=== PATIENT | male | born 1960 | race Caucasian/White ===

== ENCOUNTER 2019-08-15 14:18 | Emergency (ER) | payer BC, SELFPAY ==
--- NOTE | 2019-08-15 14:24 | XR_ITS ---
WS: [id number] XR chest 1V portable [id number] REASON FOR EXAM: sob FINDINGS: Cardiomegaly is again unchanged since earlier exam exposed June 14, 2016. The lung florentino are well aerated. No pulmonary edema, pneumonia, pleural effusion, no mass effect. The hilum and apices are normal. No evidence suspicious of osteoid lesions are seen. XR/XR chest 1V portable [id number] IMPRESSION: Cardiomegaly
--- NOTE | 2019-08-15 14:25 | ECG_ITS ---
Measurements Intervals [place] Rate: 58 P: -16 SD: 205 QRS: -8 QRSD: 110 T: 10 QT: 459 QTc: 454 SINUS BRADYCARDIA WITH FREQUENT VENTRICULAR PREMATURE COMPLEXES ABNORMAL RHYTHM ECG Compared to ECG 06/13/2016 05:31:50 Ventricular premature complex(es) now present Sinus rhythm no longer present First degree AV block no longer present Incomplete right bundle-branch block no longer present Electronically Signed On 08-15-2019 19:07:21 EQUIPMENT MAINT TECH by Negin Ibrahim M.D. [id number]
[2019-08-15 15:00] VITALS: BP 169/85; PULSE 64; RESP 18; TEMP 36.5; O2SAT 97; BMI 50.2
[2019-08-15 15:37] LABS: Basophils % 0.3 %; Eosinophils # 0.4 10^3/uL (0.0-0.8); Eosinophils % 4.1 %; Hematocrit 33.4 % (42.0-52.0); Hemoglobin 10.6 g/dL (11.7-16.6); Lymphocytes # 2.4 10^3/uL (0.8-4.8); Lymphocytes % 27.4 %; Mean Corpuscular HGB Conc 31.7 g/dL (30.0-36.0); Mean Corpuscular Hemoglobin 28.3 pg (28.0-34.0); Mean Corpuscular Volume 89.3 fL (80-94); Mean Platelet Volume 9.2 fL (7.4-10.4); Monocytes # 0.7 10^3/uL (0.2-0.9); Neutrophils # 5.3 10^3/uL (1.8-7.7); Neutrophils % 59.9 %; Nucleated Red Blood Cells % 0 %; Platelet Count 324 10^3/cmm (130-400); Red Blood Count 3.74 10^6/uL (4.1-5.3); Red Cell Distribution Width 14.5 % (12.1-15.1); White Blood Count 8.9 10^3/uL (4.0-10.0)
[2019-08-15 16:02] LABS: Troponin(5th) Baseline 15 ng/mL (0-15)
[2019-08-15 16:07] LABS: Alanine Aminotransferase 28 U/L (0-41); Albumin Level 3.9 g/dL (3.5-5.2); Alkaline Phosphatase 99 IU/L (40-130); Anion Gap 15.7 (5-19); Aspartate Amino Transferase 29 U/L (0-40); Blood Urea Nitrogen 30 mg/dL (8-23); Calcium 9.7 mg/dL (8.5-10.5); Carbon Dioxide 24 mmol/L (22-29); Chloride 103 mmol/L (98-107); Globulin 3.3 g/dL (1.3-4.6); Glomerular Filtration Rate 44.3 mL/min (90-130); Glucose 95 mg/dL (65-115); NT Pro B Type Natriuretic Pept 1393 pg/mL (0-125); Potassium 3.7 mmol/L (3.5-5.1); Sodium 139 mmol/L (136-145); Total Bilirubin 0.2 mg/dL (0.15-1.2); Total Protein 7.2 g/dL (6.6-8.7)
--- NOTE | 2019-08-15 16:21 | ED_ITS ---
Documented by User: VI Saleh 08/19/19 17:07 HPI - SOB/Dyspnea General: Chief Complaint: Shortness of Breath/Dyspnea Stated Complaint: sob, fatigue, Hx of PE Time Seen by Provider: 08/15/19 16:08 Source: patient and family Mode of arrival: ambulatory Limitations: no limitations History of Present Illness: HPI Narrative: Patient is a 58-year-old male who presents to ED today with complaints of shortness of breath with any form of exertion over the past month. He states when he walks he is getting fatigue to his bilateral lower extremities. Patient states he does not have any symptoms at rest. He states in 2016 he was diagnosed with PEs and placed on anticoagulation for 6 months. He complains of chronic bilateral lower extremity swelling. Patient denies chest pains. Patient does see PCP Dr. Bowers and he is on 20 mg of Lasix daily as well as bisoprolol/HCTZ for the swelling. MD elicited complaint: shortness of breath Pertinent past history: PE Onset (ago): week(s) Timing: intermittent (with exercise ) Exacerbating factors: lying flat and exertion Relieving factors: rest Associated symptoms: Reports orthopnea; Deny abdominal pain, chest congestion, chest pain, fever(s), hemoptysis, lightheadedness, nausea, palpitations, syncope or vomiting Related Data: Home oxygen amount: none Review of Systems Const: Reports: fatigue; Denies: fever, chills, body aches, change in appetite, change in weight, malaise or night sweats Eyes: Denies: change in vision or blurry vision Card: Reports: swelling of feet/ankles (chronic), shortness of breath on exertion and shortness of breath when lying down; Denies: chest pain, palpitations, irregular heart rhythm, edema, lightheadedness, syncope or pre-syncope Resp: Reports: shortness of breath; Denies: productive cough, non-productive cough, pain on inspiration, coughing up blood or chest congestion GI: Denies: abdominal pain, nausea or vomiting : Denies: flank pain Musc: Reports: extremity swelling (chronic bilateral LE); Denies: neck pain or back pain Skin/Breast: Denies: rash Neuro: Denies: headache, numbness in extremities, weakness in extremities or changes in sensation [facility] ED PFSH: Medical History (Updated 08/15/19 @ 18:19 by AMY Gilliam) Hypertension Porokeratosis PVD (peripheral vascular disease) Social History (Updated 07/18/19 @ 10:25 by Charlette Beltre LPN) Smoking and tobacco status: never smoked Alcohol intake: never Physical Exam Const: COMMON NORMALS: no apparent distress, oriented x3, no limitations and alert NUTRITIONAL APPEARANCE: obese HENMT: COMMON NORMALS: normocephalic and head/scalp atraumatic HEAD & SCALP: normocephalic and atraumatic Chest: COMMONS NORMALS: inspection of chest normal and palpation of chest normal Resp: COMMON NORMALS: normal respiratory effort and clear to auscultation bilaterally AUSCULTATION: clear to auscultation bilaterally Cardio: COMMON NORMALS: regular rate and regular rhythm RATE: regular rate RHYTHM: regular rhythm Extremity: OTHER: bilateral LE pitting edema/lymphedema; chronic vascular stasis changes noted Neuro: COMMON NORMALS: oriented x3 SENSORIUM/ORIENTATION: Yes alert Course Vital Signs: Vital signs: Vital Signs Temperature 97.7 F 08/15/19 15:00 Pulse Rate 60 08/15/19 19:07 Respiratory Rate 18 08/15/19 19:07 Blood Pressure 191/91 08/15/19 19:07 Pulse Oximetry 98 08/15/19 19:07 MDM - SOB/Dyspnea Lab Data: Labs: Lab Results 08/15/19 08/15/19 08/15/19 Range/Units 15:23 15:23 15:23 WBC 8.9 (4.0-10.0) 10^3/ uL RBC 3.74 L (4.1-5.3) 10^6/u L Hgb 10.6 L (11.7-16.6) g/dL Hct 33.4 L (42.0-52.0) % MCV 89.3 (80-94) fL MCH 28.3 (28.0-34.0) pg MCHC 31.7 (30.0-36.0) g/dL RDW 14.5 (12.1-15.1) % Plt Count 324 (130-400) 10^3/c mm MPV 9.2 (7.4-10.4) fL Neut % (Auto) 59.9 % Lymph % (Auto) 27.4 % [place] % (Auto) 8.0 % Eos % (Auto) 4.1 % Baso % (Auto) 0.3 % Neut # (Auto) 5.3 (1.8-7.7) 10^3/u L Lymph # (Auto) 2.4 (0.8-4.8) 10^3/u L [place] # (Auto) 0.7 (0.2-0.9) 10^3/u L Eos # (Auto) 0.4 (0.0-0.8) 10^3/u L Baso # (Auto) 0.0 (0.0-0.1) 10^3/u L Nucleated RBC % (a uto) 0 % Nucleated RBCs # 0.0 /100WBC Sodium 139 (136-145) mmol/L Potassium 3.7 (3.5-5.1) mmol/L Chloride 103 (98-107) mmol/L Carbon Dioxide 24 (22-29) mmol/L Anion Gap 15.7 (5-19) BUN 30 H (8-23) mg/dL Creatinine 1.6 H (0.7-1.2) mg/dL GFR Calculation 44.3 L (90-130) mL/min Glucose 95 (65-115) mg/dL Calcium 9.7 (8.5-10.5) mg/dL Total Bilirubin 0.2 (0.15-1.2) mg/dL AST 29 (0-40) U/L ALT 28 (0-41) U/L Alkaline Phosphata se 99 (40-130) IU/L Troponin T Baselin e 15 (0-15) ng/mL Troponin T 120 Min [place] (0-15) ng/mL Delta Troponin T (0-10) ABS# NT-Pro-B Natriuret Pep 1393 H (0-125) pg/mL Total Protein 7.2 (6.6-8.7) g/dL Albumin 3.9 (3.5-5.2) g/dL Globulin 3.3 (1.3-4.6) g/dL 08/15/19 Range/Units 17:28 WBC (4.0-10.0) 10^3/ uL RBC (4.1-5.3) 10^6/u L Hgb (11.7-16.6) g/dL Hct (42.0-52.0) % MCV (80-94) fL MCH (28.0-34.0) pg MCHC (30.0-36.0) g/dL RDW (12.1-15.1) % Plt Count (130-400) 10^3/c mm MPV (7.4-10.4) fL Neut % (Auto) % Lymph % (Auto) % [place] % (Auto) % Eos % (Auto) % Baso % (Auto) % Neut # (Auto) (1.8-7.7) 10^3/u L Lymph # (Auto) (0.8-4.8) 10^3/u L [place] # (Auto) (0.2-0.9) 10^3/u L Eos # (Auto) (0.0-0.8) 10^3/u L Baso # (Auto) (0.0-0.1) 10^3/u L Nucleated RBC % (a uto) % Nucleated RBCs # /100WBC Sodium (136-145) mmol/L Potassium (3.5-5.1) mmol/L Chloride (98-107) mmol/L Carbon Dioxide (22-29) mmol/L Anion Gap (5-19) BUN (8-23) mg/dL Creatinine (0.7-1.2) mg/dL GFR Calculation (90-130) mL/min Glucose (65-115) mg/dL Calcium (8.5-10.5) mg/dL Total Bilirubin (0.15-1.2) mg/dL AST (0-40) U/L ALT (0-41) U/L Alkaline Phosphata se (40-130) IU/L Troponin T Baselin e (0-15) ng/mL Troponin T 120 Min [place] 13.84 (0-15) ng/mL Delta Troponin T -1.16 L (0-10) ABS# NT-Pro-B Natriuret Pep (0-125) pg/mL Total Protein (6.6-8.7) g/dL Albumin (3.5-5.2) g/dL Globulin (1.3-4.6) g/dL Discharge Plan Discharge Patient Disposition: Home, Self-Care Clinical Impression: Congestive heart failure Qualifiers: Heart failure type: unspecified Heart failure chronicity: unspecified Qualified Code(s): I50.9 - Heart failure, unspecified Condition: Stable Prescriptions: New furosemide 40 mg tablet 40 mg PO DAILY 7 Days Qty: 7 RF: 0 potassium chloride 10 mEq tablet extended release 10 meq PO DAILY Qty: 7 RF: 0 No Action amlodipine 5 mg tablet 5 mg PO DAILY RF: 0 bisoprolol-hydrochlorothiazide 10-6.25 mg tablet 1 tab PO DAILY RF: 0 cetirizine [Allergy Relief (cetirizine)] 10 mg tablet 10 mg PO DAILY RF: 0 isosorbide mononitrate 60 mg tablet extended release 24 hr 120 mg PO DAILY RF: 0 furosemide [Lasix] 20 mg tablet 20 mg PO DAILY RF: 0 losartan 100 mg tablet 100 mg PO DAILY RF: 0 metformin 500 mg tablet 500 mg PO BID RF: 0 montelukast [Singulair] 10 mg tablet 10 mg PO DAILY RF: 0 Discharge Orders: Discharge Order (Routine); Ordered 08/15/19 Ordered By: Madan Kam Referrals: Tye Bowers MD [Primary Care Provider] - Discharge Diet: Usual diet Discharge Activity: Increase activity as tolerated Patient Instructions: Heart Failure (ED) Activity Restrictions/Additional Instructions: Activity as tolerated Healthy diet Medications as directed Follow-up with primary care in one week Case management will contact you with referral to Cardiology Return to ER for worsening symptoms or new concerns Stand Alone Forms: Work/School Release Discharge Date/Time: 08/15/19 19:07 Coding Level of Care Code ED Care Team Coordinator Scheduler for Chg Fwd Exam Detailed Documented by User: AMY Gilliam 08/15/19 19:05 HPI - SOB/Dyspnea General: Chief Complaint: Shortness of Breath/Dyspnea Stated Complaint: sob, fatigue, Hx of PE Time Seen by Provider: 08/15/19 16:08 PFSH ED PFSH: Medical History (Updated 08/15/19 @ 18:19 by AMY Gilliam) Hypertension Porokeratosis PVD (peripheral vascular disease) Social History (Updated 07/18/19 @ 10:25 by Charlette Beltre LPN) Smoking and tobacco status: never smoked Alcohol intake: never Course ED course: 0, received patient from Flower Saenz PA-C, patient is awaiting CT scan and report. ww Vital Signs: Vital signs: Vital Signs Temperature 97.7 F 08/15/19 15:00 Pulse Rate 60 08/15/19 19:07 Respiratory Rate 18 08/15/19 19:07 Blood Pressure 191/91 08/15/19 19:07 Pulse Oximetry 98 08/15/19 19:07 MDM - SOB/Dyspnea MDM Narrative: Medical decision making narrative: Patient came in today for persistent shortness of breath over the last month. Patient has a history of pulmonary embolism, diabetes, and hypertension. Patient was worried that he may have a pulmonary embolism due to the persistence of shortness of breath. Patient is a obese male and is on multiple medications suggestive of a congestive heart failure history. Patient appears well. Patient appears in no pain. Differential diagnosis includes pulmonary embolism, ACS, CHF, pneumonia, poor cardiac conditioning. X-rays noted cardiomegaly. Laboratory values noted a hemoglobin of 10 and 33, creatinine was 1.6, potassium was 3.7 and sodium was 139. CT scan of the chest noted no pulmonary embolism. EKG noted occasional PVCs and a first-degree AV block. Troponin level was normal. BNP was elevated at 1300. Reviewed exam with patient recommended treatment for congestive heart failure. Patient was recommended to follow-up with cardiology for further management. Patient was given 1 dose of 40 mg furosemide in the ER IV with good diuresis. Patient was also started on 40 mg Lasix daily with potassium 10 mEq daily. Patient reported understanding of care plan and need for follow-up. Lab Data: Labs: Lab Results 08/15/19 08/15/19 08/15/19 Range/Units 15:23 15:23 15:23 WBC 8.9 (4.0-10.0) 10^3/ uL RBC 3.74 L (4.1-5.3) 10^6/u L Hgb 10.6 L (11.7-16.6) g/dL Hct 33.4 L (42.0-52.0) % MCV 89.3 (80-94) fL MCH 28.3 (28.0-34.0) pg MCHC 31.7 (30.0-36.0) g/dL RDW 14.5 (12.1-15.1) % Plt Count 324 (130-400) 10^3/c mm MPV 9.2 (7.4-10.4) fL Neut % (Auto) 59.9 % Lymph % (Auto) 27.4 % [place] % (Auto) 8.0 % Eos % (Auto) 4.1 % Baso % (Auto) 0.3 % Neut # (Auto) 5.3 (1.8-7.7) 10^3/u L Lymph # (Auto) 2.4 (0.8-4.8) 10^3/u L [place] # (Auto) 0.7 (0.2-0.9) 10^3/u L Eos # (Auto) 0.4 (0.0-0.8) 10^3/u L Baso # (Auto) 0.0 (0.0-0.1) 10^3/u L Nucleated RBC % (a uto) 0 % Nucleated RBCs # 0.0 /100WBC Sodium 139 (136-145) mmol/L Potassium 3.7 (3.5-5.1) mmol/L Chloride 103 (98-107) mmol/L Carbon Dioxide 24 (22-29) mmol/L Anion Gap 15.7 (5-19) BUN 30 H (8-23) mg/dL Creatinine 1.6 H (0.7-1.2) mg/dL GFR Calculation 44.3 L (90-130) mL/min Glucose 95 (65-115) mg/dL Calcium 9.7 (8.5-10.5) mg/dL Total Bilirubin 0.2 (0.15-1.2) mg/dL AST 29 (0-40) U/L ALT 28 (0-41) U/L Alkaline Phosphata se 99 (40-130) IU/L Troponin T Baselin e 15 (0-15) ng/mL Troponin T 120 Min [place] (0-15) ng/mL Delta Troponin T (0-10) ABS# NT-Pro-B Natriuret Pep 1393 H (0-125) pg/mL Total Protein 7.2 (6.6-8.7) g/dL Albumin 3.9 (3.5-5.2) g/dL Globulin 3.3 (1.3-4.6) g/dL 08/15/19 Range/Units 17:28 WBC (4.0-10.0) 10^3/ uL RBC (4.1-5.3) 10^6/u L Hgb (11.7-16.6) g/dL Hct (42.0-52.0) % MCV (80-94) fL MCH (28.0-34.0) pg MCHC (30.0-36.0) g/dL RDW (12.1-15.1) % Plt Count (130-400) 10^3/c mm MPV (7.4-10.4) fL Neut % (Auto) % Lymph % (Auto) % [place] % (Auto) % Eos % (Auto) % Baso % (Auto) % Neut # (Auto) (1.8-7.7) 10^3/u L Lymph # (Auto) (0.8-4.8) 10^3/u L [place] # (Auto) (0.2-0.9) 10^3/u L Eos # (Auto) (0.0-0.8) 10^3/u L Baso # (Auto) (0.0-0.1) 10^3/u L Nucleated RBC % (a uto) % Nucleated RBCs # /100WBC Sodium (136-145) mmol/L Potassium (3.5-5.1) mmol/L Chloride (98-107) mmol/L Carbon Dioxide (22-29) mmol/L Anion Gap (5-19) BUN (8-23) mg/dL Creatinine (0.7-1.2) mg/dL GFR Calculation (90-130) mL/min Glucose (65-115) mg/dL Calcium (8.5-10.5) mg/dL Total Bilirubin (0.15-1.2) mg/dL AST (0-40) U/L ALT (0-41) U/L Alkaline Phosphata se (40-130) IU/L Troponin T Baselin e (0-15) ng/mL Troponin T 120 Min [place] 13.84 (0-15) ng/mL Delta Troponin T -1.16 L (0-10) ABS# NT-Pro-B Natriuret Pep (0-125) pg/mL Total Protein (6.6-8.7) g/dL Albumin (3.5-5.2) g/dL Globulin (1.3-4.6) g/dL Discharge Plan Discharge Patient Disposition: Home, Self-Care Clinical Impression: Congestive heart failure Qualifiers: Heart failure type: unspecified Heart failure chronicity: unspecified Qualified Code(s): I50.9 - Heart failure, unspecified Condition: Stable Prescriptions: New furosemide 40 mg tablet 40 mg PO DAILY 7 Days Qty: 7 RF: 0 potassium chloride 10 mEq tablet extended release 10 meq PO DAILY Qty: 7 RF: 0 No Action amlodipine 5 mg tablet 5 mg PO DAILY RF: 0 bisoprolol-hydrochlorothiazide 10-6.25 mg tablet 1 tab PO DAILY RF: 0 cetirizine [Allergy Relief (cetirizine)] 10 mg tablet 10 mg PO DAILY RF: 0 isosorbide mononitrate 60 mg tablet extended release 24 hr 120 mg PO DAILY RF: 0 furosemide [Lasix] 20 mg tablet 20 mg PO DAILY RF: 0 losartan 100 mg tablet 100 mg PO DAILY RF: 0 metformin 500 mg tablet 500 mg PO BID RF: 0 montelukast [Singulair] 10 mg tablet 10 mg PO DAILY RF: 0 Discharge Orders: Discharge Order (Routine); Ordered 08/15/19 Ordered By: Madan Kam Referrals: Tye Bowers MD [Primary Care Provider] - Discharge Diet: Usual diet Discharge Activity: Increase activity as tolerated Patient Instructions: Heart Failure (ED) Activity Restrictions/Additional Instructions: Activity as tolerated Healthy diet Medications as directed Follow-up with primary care in one week Case management will contact you with referral to Cardiology Return to ER for worsening symptoms or new concerns Stand Alone Forms: Work/School Release Discharge Date/Time: 08/15/19 19:07 Coding Level of Care Code ED Care Team Coordinator Scheduler for Andrés Fwd Exam Detailed
--- NOTE | 2019-08-15 16:25 | CTR_ITS ---
PROCEDURE INFORMATION: Exam: CT Angiography Chest With Contrast Exam date and time: 08/15/2019 4:45 PM Age: 58 years old Clinical indication: Shortness of breath; Additional info: SOB; Previous pe 2016 TECHNIQUE: Imaging protocol: Computed tomographic angiography of the chest with intravenous contrast. 3D rendering: MIP and/or 3D reconstructed images were created by the technologist. Total DLP: 1002.95 mGy-cm Radiation optimization: All CT scans at this facility use at least one of these dose optimization techniques: automated exposure control; mA and/or kV adjustment per patient size (includes targeted exams where dose is matched to clinical indication); or iterative reconstruction. Contrast material: VISI; Contrast volume: 95 ml; Contrast route: AC; COMPARISON: CTA Chest-Pulmonary Emb [id number] 06/12/2016 12:50 PM FINDINGS: Pulmonary arteries: There is no pulmonary embolus. Aorta: Unremarkable. No aortic aneurysm. No aortic dissection. Lungs: Unremarkable. No consolidation. No masses. Pleural space: Unremarkable. No pneumothorax. No pleural effusion. Heart: Unremarkable. No cardiomegaly. No pericardial effusion. Mediastinum: A small hiatal hernia is present. Liver: There is mild fatty infiltration liver. Lymph nodes: Unremarkable. No enlarged lymph nodes. Bones/joints: Moderate degenerative changes are noted in the spine. No acute bony abnormality. Soft tissues: Unremarkable. CT/CT angio chest PE protcl [id number] IMPRESSION: 1. There is no pulmonary embolus. 2. No acute abnormality. Radiation Dose CTDIVOL = (mGy): DLP = 1002.95 (mGy-cm)
--- NOTE | 2019-08-15 16:25 | ECG_ITS ---
Measurements Intervals [place] Rate: 63 P: 26 AK: 243 QRS: -11 QRSD: 110 T: 7 QT: 443 QTc: 454 SINUS RHYTHM WITH FIRST DEGREE AV BLOCK WITH FREQUENT VENTRICULAR PREMATURE COMPLEXES Compared to ECG 06/13/2016 05:31:50 Ventricular premature complex(es) now present Incomplete right bundle-branch block no longer present Electronically Signed On 08-15-2019 19:12:59 ROOFING APPRENTICE by Negin Ibrahim M.D. [id number]
[2019-08-15 16:27] VITALS: BP 166/86; PULSE 61; RESP 17; O2SAT 97
[2019-08-15] MEDS: iodixanol 320 mg/mL 100mL Btl 95 ML IV (17:14)
[2019-08-15 18:00] VITALS: BP 204/107; PULSE 61; RESP 15; O2SAT 97
[2019-08-15 18:31] LABS: Troponin 5 2HR 13.84 ng/mL (0-15)
[2019-08-15 18:32] LABS: Troponin 5 2HR Delta -1.16 ABS# (0-10)
[2019-08-15] MEDS: FUROsemide 10 mg/mL SDV 4mL 40 MG IVP (18:39)
[2019-08-15 19:07] VITALS: BP 191/91; PULSE 60; RESP 18; O2SAT 98
--- NOTE | 2019-08-16 13:49 | DCPLANNER ---
Addendum entered by Anne Stanton 08/16/19 13:51: Appointment is Friday, August 23, 2019 at 10:[address] Mckenzie. Original Note: manager of tires sales had message to schedule a follow up appointment for patient with [facility]. manager of tires sales called [facility], spoke with Erna, a follow up appointment was scheduled for 2019 at 9:[address] Mckenzie. Clinic will call patient with appointment information.
--- NOTE | 2019-09-03 15:27 | DCPLANNER ---
Patient attended appointment scheduled for 08.23.19 with [facility].
== END 2019-08-15 19:07 | disposition home or self-care (01) ==
PROVIDERS: Emergency Medicine; Emergency Provider Nurse Practitioner Family; Family Provider Family Medicine; PCP Family Medicine
DX: I11.0 Hypertensive heart disease with heart failure (principal); E11.9 Type 2 diabetes mellitus without complications; I73.9 Peripheral vascular disease, unspecified; E66.9 Obesity, unspecified; Z68.43 Body mass index [BMI] 50.0-59.9, adult; Z79.84 Long term (current) use of oral hypoglycemic drugs; Z86.711 Personal history of pulmonary embolism
CPT/HCPCS: 36415; 71045; 71275; 80053; 83880; 84484; 85025; 93005; 96374; 96375; 99283; 99284; J1940; Q9967

== ENCOUNTER 2019-08-26 07:11 | Outpatient (CLI) | payer BC, SELFPAY ==
--- NOTE | 2019-08-26 08:00 | USCV_ITS ---
Douglas Burgos Age: 58 Gender: M : 1960 Exam Date: 08/26/2019 07:35 Ordering Phys: Tye Bowers MD Technologist: Malka Dewitt [place] [facility] [place]: BRADY BP: / HR: 62 Rhythm: Sinus Technical Quality: Technically difficult study MEASUREMENTS (Male / Female) Normal Values 2D ECHO LV Diastolic Diameter PLAX 5.0 cm 4.2 - 5.9 / 3.9 - 5.3 cm LV Systolic Diameter PLAX 3.4 cm IVS Diastolic Thickness 1.6 cm 0.6 - 1.0 / 0.6 - 0.9 cm IVS Systolic Thickness 2.0 cm LVPW Diastolic Thickness 1.5 cm 0.6 - 1.0 / 0.6 - 0.9 cm LVPW Systolic Thickness 2.0 cm LVOT Diameter 2.1 cm LV Ejection Fraction 2D Teich 61.2 % LV Ejection Fraction MOD 2C 51.5 % LV Ejection Fraction 2C AL 54.0 % LA Diameter 3.6 cm LA Width 4.6 cm LA Height 6.5 cm RA Width 3.5 cm RA Height 5.2 cm M-MODE LV Diastolic Diameter MM 5.3 cm 4.2 - 5.9 / 3.9 - 5.3 cm LV Systolic Diameter MM 3.5 cm LV Ejection Fraction MM Teich 62.6 % IVS Diastolic Thickness MM 0.9 cm 0.6 - 1.0 / 0.6 - 0.9 cm IVS Systolic Thickness MM 1.5 cm LVPW Diastolic Thickness MM 1.1 cm 0.6 - 1.0 / 0.6 - 0.9 cm LVPW Systolic Thickness MM 1.9 cm Aortic Annulus Diameter 3.6 cm LA Ao Ratio MM 1.0 MV E Point Septal Separation 0.4 cm DOPPLER AV Peak Velocity 140.0 cm/s LVOT Peak Velocity 136.0 cm/s AV Area Cont Eq vti 2.9 cm squared AV Area Cont Eq pk 3.3 cm squared MV Peak Velocity 129.0 cm/s MV Area PHT 4.4 cm squared Mitral E to A Ratio 1.9 MV E' Velocity 8.0 cm/s Mitral E to MV E' Ratio 14.8 Mitral E to LV E' Lateral Ratio 12.9 Mitral E to LV E' Septal Ratio 17.8 TR Peak Velocity 105.0 cm/s TR Peak Gradient 4.4 mmHg Right Atrial Pressure 3.0 mmHg Pulmonary Artery Systolic Pressu 7.4 mmHg PV Peak Velocity 114.0 cm/s RV Acceleration Time 0.1 s FINDINGS Left Ventricle Left ventricular cavity not well visualized. Left ventricular ejection fraction is estimated at 55%. This study is inadequate for estimation of regional wall motion abnormality. Right Ventricle Right ventricle not well visualized. Right ventricular systolic pressure 7.4 mmHg. Right Atrium Normal right atrial size. Right atrial pressure estimated at 3 mmHg. Left Atrium Normal left atrial size. Mitral Valve Mitral valve not well visualized. No mitral valve stenosis. Trace mitral valve regurgitation. Aortic Valve Aortic valve not well visualized. No aortic valve stenosis. Tricuspid Valve Tricuspid valve not well visualized. Pulmonic Valve Pulmonic valve not well visualized. Trace pulmonary valve regurgitation. Pericardium No pericardial effusion. Aorta Normal size aortic root and proximal ascending aorta. CONCLUSIONS 1. This is a technically difficult study. 2. Left ventricular ejection fraction is estimated at 55%. This study is inadequate for estimation of regional wall motion abnormality. 3. No significant valvular abnormality. 4. Direct comparison to previous study dated 06/12/2016 is not possible given technically difficult study. Karen Mckenzie MD (Electronically Signed) Final Date: 26 August 2019 13:23 S
== END 2019-08-26 07:12 | disposition home or self-care (01) ==
PROVIDERS: Family Provider Family Medicine; PCP Family Medicine; Visit Provider Family Medicine
DX: I34.0 Nonrheumatic mitral (valve) insufficiency (principal); I37.1 Nonrheumatic pulmonary valve insufficiency; R06.09 Other forms of dyspnea
CPT/HCPCS: 93306

== ENCOUNTER 2019-09-09 16:01 | Outpatient (CLI) | payer BC, SELFPAY ==
[2019-09-09 18:19] LABS: Anion Gap 12.3 (5-19); Blood Urea Nitrogen 23 mg/dL (8-23); Carbon Dioxide 31 mmol/L (22-29); Chloride 104 mmol/L (98-107); Glomerular Filtration Rate 47.7 mL/min (90-130); Glucose 106 mg/dL (65-115); Magnesium 2.5 mg/dL (1.7-2.3); NT Pro B Type Natriuretic Pept 727 pg/mL (0-125); Osmolality Calculated 293 mOsm/kg (285-295); Potassium 4.3 mmol/L (3.5-5.1); Sodium 143 mmol/L (136-145)
== END 2019-09-09 16:02 | disposition home or self-care (01) ==
LOC: LAB 16:04
PROVIDERS: Internal Medicine Cardiovascular Disease; Family Provider Family Medicine; PCP Family Medicine; Visit Provider Hospitalist
DX: I10 Essential (primary) hypertension (principal); I50.9 Heart failure, unspecified; E78.5 Hyperlipidemia, unspecified; E11.9 Type 2 diabetes mellitus without complications
CPT/HCPCS: 80048; 83735; 83880

== ENCOUNTER 2019-10-08 13:57 | Outpatient (CLI) | payer BC, SELFPAY ==
--- NOTE | 2019-10-08 14:15 | USCV_ITS ---
Douglas Burgos Age: 58 Gender: M : 1960 Exam Date: 10/08/2019 14:40 Ordering Phys: Karen Mckenzie MD ([email or web address]) Technologist: Vernell Whipple Exam Location: [facility] – [place] Indication: CHF BP: / HR: 64 Rhythm: Sinus Technical Quality: Adequate MEASUREMENTS (Male / Female) Normal Values 2D ECHO LV Ejection Fraction MOD 2C 62.0 % LV Ejection Fraction 2C AL 62.1 % M-MODE RV Diastolic Diameter MM 1.2 cm FINDINGS Left Ventricle Normal left ventricular cavity size. Normal left ventricular systolic function. Left ventricular ejection fraction is estimated at 60 %. No regional wall motion abnormalities. Right Ventricle Right ventricle not well visualized. Probably normal right ventricular size and systolic function. Right Atrium Right atrium not well visualized. Left Atrium Left atrium not well visualized. Mitral Valve Mitral valve not well visualized. Aortic Valve Aortic valve not well visualized. Tricuspid Valve Tricuspid valve not well visualized. Pulmonic Valve Pulmonic valve not well visualized. Pericardium No pericardial effusion. Aorta Aorta not well visualized. CONCLUSIONS 1. This is a limited study with ultrasound enhancing agent (Optison). 2. Normal left ventricular cavity size and systolic function. Left ventricular ejection fraction is estimated at 55-60 %. No regional wall motion abnormalities. 3. Frequent ectopy noted throughout the study. Karen Mckenzie MD (Electronically Signed) Final Date: 09 October 2019 15:29 S
[2019-10-08] MEDS: perflutren protein-a microsphr 0.22 mg/mL SDV 3 mL IV (16:16)
== END 2019-10-08 13:58 | disposition home or self-care (01) ==
LOC: RAD 14:01
PROVIDERS: Family Provider Family Medicine; PCP Family Medicine; Visit Provider Internal Medicine Cardiovascular Disease
DX: I50.9 Heart failure, unspecified (principal)
CPT/HCPCS: C8924

== ENCOUNTER 2019-12-19 07:05 | Outpatient (CLI) | payer BC, SELFPAY ==
--- NOTE | 2019-12-19 07:34 | ECG_ITS ---
[facility] Test Date: 2019-12-19 Pat Name: Douglas Burgos Department: Room: Gender: Male Digital Cartographer: : 1960 Requested By: Karen Mckenzie Order Number: [id number] Pollard MD: Karen Mckenzie M.D. Interpretive Statements NAME OF STUDY: LEXISCAN SESTAMIBI STRESS TEST INDICATION: Chest Pain PROCEDURE: At the baseline, the blood pressure was 187/99 mmHg with a heart rate of 66 bpm. The electrocardiogram showed normal sinus rhythm, normal axis. Poor anterior R wave progression with normal ST and T's. The Lexiscan was infused over a period of 20 seconds. A total of 0.4 milligrams of Lexiscan was infused. The stress phase was continued for a total of 5 minutes. Heart rate at the end of the stress phase was 73 bpm with a blood pressure 156/92 mmHg. The EKG at the peak infusion revealed sinus rhythm with no significant ST-T wave changes. Isolated PVCs noted during stress. Sestamibi was injected 20 seconds after the Lexiscan infusion. Blood pressure at the end of the recovery phase was 189/95 mmHg with a heart rate of 70 beats per minute. CONCLUSION: 1. No significant EKG changes with the LexiScan infusion. 2. No LexiScan induced chest pain or cardiac arrhythmia. 3. Normal blood pressure and heart rate response. 4. Sestamibi/sestamibi perfusion scan pending; see separate report. Electronically Signed On 12-23-2019 12:30:27 CDT by Karen Mckenzie M.D. [id number]
--- NOTE | 2019-12-19 07:34 | NMCV_ITS ---
NM carmen perf SPECT r/s* [id number] Douglas Burgos Age: 59 Gender: M : 1960 Exam Date: 12/19/2019 08:18 Ordering Phys: Karen Mckenzie MD ([email or web address]) Technologist: CLAIRE Abdi Exam Location: [facility] Indications: CHF BRADY STRESS TEST Please see separate stress test report in [facility] for full findings IMAGE PROTOCOL Rest/Stress 1 Lexiscan Day Radiopharmaceutical Dose (mCi) Administration Site Administered by Rest: Tc-99m 10.6 IV CLAIRE Taylor Sestamibi Stress:Tc-99m 33.0 IV CLAIRE Taylor Sestamibi Rest: 19-Dec-2019 60 Discovery 630 Stress: 19-Dec-2019 30 Discovery 630 0.4mg Lexiscan. Images obtained in supine and prone position. SPECT RESULTS Technical Quality: Excellent Raw Data Analysis: Normal Image Corrections: No attenuation or motion correction applied Summed Stress Score: 0 Summed Rest Score: 0 Summed Difference Score: 0 PERFUSION FINDINGS SPECT images demonstrate homogeneous tracer distribution throughout the myocardium. FUNCTIONAL RESULTS (calculated via Gated SPECT) Stress Image LV EF (%): 55 Stress EDV (mL):170 TID: 1.07 Stress ESV (mL):76 FUNCTIONAL FINDINGS: The left ventricle is normal in size. Transient Ischemia Dilatation of 1.1. There is normal left ventricular systolic function. The left ventricular ejection fraction is normal with a value of 55%. There is normal left ventricular wall thickening. IMPRESSIONS 1. Myocardial perfusion imaging is normal. 2. Overall left ventricular systolic function is normal without regional wall motion abnormalities. 3. The left ventricular ejection fraction is normal with a value of 55%. 4. Scan indicates low risk for cardiac events. Karen Mckenzie MD (Electronically Signed) Final Date: 19 December 2019 17:11 S
[2019-12-19 07:35] VITALS: BMI 50.2
[2019-12-19] MEDS: regadenoson 0.4 Mg/5 ml Syringe IVP (09:04)
[2019-12-19 09:05] VITALS: BP 178/87; PULSE 76
== END 2019-12-19 07:06 | disposition home or self-care (01) ==
LOC: CDL 07:07
PROVIDERS: PCP Family Medicine; Visit Provider Internal Medicine Cardiovascular Disease
DX: R07.9 Chest pain, unspecified (principal)
CPT/HCPCS: 78452; 93017; A9500; J2785

== ENCOUNTER → 2020-04-20 15:42 | Outpatient (BNVA) | payer OTHER, SELFPAY | PROVIDERS: PCP Family Medicine; Visit Provider Nurse Practitioner Family | DX: J06.9 Acute upper respiratory infection, unspecified (principal); Z20.828 Contact with and (suspected) exposure to other viral communicable diseases | CPT/HCPCS: 87635 ==

== ENCOUNTER 2020-04-28 23:49 | Inpatient (IN) | payer OTHER, SELFPAY ==
[2020-04-28 23:51] VITALS: BP 202/105; PULSE 89; RESP 24; TEMP 37.1; O2SAT 92; BMI 48.7
[2020-04-29] VITALS (74 sets, daily range): BP systolic 132–245; BP diastolic 71–132; PULSE 58–102; RESP 6–34; TEMP 36.6–37.1; O2SAT 92–98
--- NOTE | 2020-04-29 00:09 | XR_ITS ---
WS: [id number] XR chest 1V portable [id number] REASON FOR EXAM: Dyspnea FINDINGS: The chest is unchanged compared to previous examination of 04/22/2020. There is cardiomegaly. There i s prominence of the central interstitial bronchovascular markings. No definite acute abnormality identified. XR/XR chest 1V portable [id number] IMPRESSION: No acute chest abnormality.
--- NOTE | 2020-04-29 00:10 | ED_ITS ---
HPI - SOB/Dyspnea General: Chief Complaint: Shortness of Breath/Dyspnea Stated Complaint: SOB 2neg covid tests Time Seen by Provider: 04/29/20 00:13 Source: patient Mode of arrival: ambulatory Limitations: no limitations History of Present Illness: HPI Narrative: Mr. Burgos is a nice 59-year-old male comes in complaining of shortness of breath, fatigue since April 14. He was seen by his doctor felt like he had Covid but Covid test was negative on the . His symptoms persisted and he was rechecked on the and again had a negative Covid test. At that time he was told he had pneumonia was placed on steroids and antibiotics. Patient states he continues to feel poorly and gets short of breath when he exerts himself. They monitor his oxygen at home and it gets as low as 74% on room air. Patient states any type of exertion or laying flat makes his shortness of breath much worse. Patient denies any chest pain. Associated symptoms: Reports fever(s); Deny abdominal pain, chest congestion, chest pain, dizziness, extremity pain, hemoptysis, lightheadedness, nausea, orthopnea, palpitations, syncope or vomiting Review of Systems Const: Reports: fever(s), chills, fatigue and malaise Eyes: Denies: change in vision, blurry vision, photophobia, eye discomfort, eye discharge, eye redness or yellow eyes ENMT: Denies: throat pain, odynophagia, hoarseness, swelling of lips/tongue, ear or mastoid pain, ear discharge, change in hearing or nasal discharge Card: Reports: swelling of feet/ankles; Denies: chest pain, palpitations, irregular heart rhythm, edema, lightheadedness, syncope, pre-syncope, dyspnea on exertion or orthopnea Resp: Reports: dyspnea and non-productive cough; Denies: productive cough, wheezing, hemoptysis or chest congestion GI: Denies: abdominal pain, nausea, vomiting, hematemesis, coffee ground emesis, heartburn, diarrhea, constipation, GI cramping, hematochezia or melena : Denies: flank pain, dysuria, urinary frequency, urinary urgency or hematuria Musc: Denies: neck pain, back pain, extremity pain, extremity swelling, joint pain, joint swelling, joint redness, joint warmth or joint stiffness Skin/Breast: Denies: rash, pruritus, erythema, skin pain or skin tenderness Neuro: Denies: headache(s), numbness in extremities, weakness in extremities, sensory changes, lack of coordination, difficulty walking, dizziness, vertigo, confusion, Slurred speech present or seizure-like activity Cabrera/Lymph: Denies: easy bruising, easy bleeding, petechiae, purpura or enlarged lymph nodes All/Imm: Denies: urticaria, throat swelling, tongue swelling, facial swelling or acute wheezing PFSH ED PFSH: Medical History (Updated 04/29/20 @ 04:29 by Laura Mckoy) Chronic kidney disease Diabetes mellitus DVT (deep venous thrombosis) Hyperlipidemia Hypertension Obesity Porokeratosis Pulmonary embolism Suspected sleep apnea Surgical History (Updated 04/29/20 @ 02:48 by Feliberto Valencia MD) History of carpal tunnel surgery History of vasectomy Family History Other Hypertension Stroke Denies family history of Diabetes CAD (coronary artery disease) Clotting disorder Dementia Hyperlipidemia Psychiatric illness Chronic kidney disease (CKD) Suicide Anesthesia complication Bleeding disorder Family history of premature coronary artery disease Lung disease Cancer Social History Smoking and tobacco status: never smoked Alcohol intake: never Physical Exam Const: COMMON NORMALS: no acute distress, patient oriented x3, no limitations and alert GENERAL APPEARANCE: cooperative HENMT: COMMON NORMALS: normocephalic, atraumatic, external ears normal, EAC's normal and Normal external nose present HEAD & SCALP: normal to inspection, normocephalic and atraumatic FACE & SINUS: normal facial exam and face symmetric NOSE: Normal external nose present and Normal nares present EXTERNAL EAR: Yes external ears normal EXTERNAL AUDITORY CANAL: EAC's normal MOUTH: Normal oral and palatal mucosa present, lip normal and tongue normal Eye: COMMON NORMALS: Equal, round and reactive pupils present and conjunctivae normal GENERAL EYE: appearance normal, both eyes and all related structures ALIGNMENT: Yes alignment normal PERIORBITAL: periorbital findings normal EYELID: eyelids normal CONJUNCTIVA: Yes conjunctivae normal SCLERA: sclerae normal PUPIL: Yes Equal, round and reactive pupils present Neck/C-Spine: COMMON NORMALS: full ROM, no lymphadenopathy, supple, no meningeal signs and no JVD GENERAL: Yes normal visual inspection and Yes trachea midline Chest: COMMONS NORMALS: normal inspection of the chest and normal palpation of entire chest wall Resp: COMMON NORMALS: normal respiratory effort, No retractions, No use of accessory muscles and clear to auscultation bilaterally EFFORT & INSPECTION: Yes able to speak in complete sentences and Yes symmetric chest movement AUSCULTATION: clear to auscultation bilaterally, no crackles, rales, no rhonchi and no wheezes Cardio: COMMON NORMALS: no JVD, regular rate, regular rhythm, S1 normal heart sound present and S2 normal heart sound present RATE: regular rate RHYTHM: regular rhythm HEART SOUNDS: S1 normal heart sound present, S2 normal heart sound present, no click, no gallops, no murmurs and no rubs GI: COMMON NORMALS: Soft to palpation and No hepatosplenomegaly present PALPATION: Yes Soft to palpation, No Tenderness to palpation present (GI), No Guarding due to palpation present (GI), No Rigid due to palpation, Yes No hepatosplenomegaly present, No Hernia present, No Palpable mass present and No Pulsatile mass present : COMMON NORMALS: Yes no CVA tenderness BLADDER/KIDNEY EXAM: Yes no CVA tenderness Back/Pelvis: COMMON NORMALS: no CVA tenderness, thoracic and lumbar spine normal to inspection, no thoracic nor lumbar tenderness and thoraco-lumbar ROM normal Extremity: COMMON NORMALS: normal to inspection, full ROM, capillary refill normal, no joint enlargement, no clubbing, cyanosis or edema and no calf tenderness Neuro: COMMON NORMALS: patient oriented x3, CN's II-XII intact bilaterally, moves all extremities, no focal motor deficits and no sensory deficits noted SENSORIUM/ORIENTATION: Yes alert MENINGEAL SIGNS: Yes no meningeal signs SPEECH: speech normal Psych: COMMON NORMALS: mental status grossly normal, Normal thought process present, cooperative, normal affect, speech normal and activity/motor behavior normal SPEECH: Yes normal speech THOUGHT PROCESS: Normal thought process present Skin: COMMON NORMALS: no rashes or lesions noted, turgor normal, no jaundice, no petechiae and no mottling GENERAL SKIN EXAM: no rashes or lesions noted and turgor normal Course Vital Signs: Vital signs: Vital Signs Temperature 97.9 F 04/29/20 03:55 Pulse Rate 69 04/29/20 04:00 Respiratory Rate 20 H 04/29/20 04:00 Blood Pressure 157/90 04/29/20 04:00 Pulse Oximetry 95 04/29/20 04:00 MDM - SOB/Dyspnea MDM Narrative: Medical decision making narrative: Patient appears to be in new onset A. fib with congestive heart failure. He is hypoxic and requiring oxygen. I have reviewed the case in full with Dr. Valencia who is agreeable to admission. Patient does now admit to history of DVT in the past we will go ahead and add a CTA to evaluate lungs for possible viral pneumonitis as well as for pulmonary emboli. Lab Data: Labs: Lab Results 04/29/20 04/29/20 04/29/20 Range/Units 00:15 00:15 00:15 WBC 14.5 H (4.0-10.0) 10^3/ uL RBC 4.41 (4.1-5.3) 10^6/u L Hgb 12.4 (11.7-16.6) g/dL Hct 38.9 L (42.0-52.0) % MCV 88.2 (80-94) fL MCH 28.1 (28.0-34.0) pg MCHC 31.9 (30.0-36.0) g/dL RDW 14.8 (12.1-15.1) % Plt Count 269 (130-400) 10^3/c mm MPV 8.9 (7.4-10.4) fL Neut % (Auto) 63.8 % Lymph % (Auto) 27.0 % [place] % (Auto) 5.9 % Eos % (Auto) 1.6 % Baso % (Auto) 0.3 % Neut # (Auto) 9.25 H (1.8-7.7) 10^3/u L Lymph # (Auto) 3.9 (0.8-4.8) 10^3/u L [place] # (Auto) 0.9 (0.2-0.9) 10^3/u L Eos # (Auto) 0.2 (0.0-0.8) 10^3/u L Baso # (Auto) 0.0 (0.0-0.1) 10^3/u L Nucleated RBC % (a uto) 0 % Nucleated RBCs # 0.0 /100WBC PT (12.1-14.9) SECO NDS INR (0.8-1.2) Specimen Type Sample Site ABG pH (7.35-7.45) ABG pCO2 (35-45) mmHg ABG pO2 (80.0-100.0) mmH g ABG HCO3 (22-26) mmol/L ABG Base Excess (-2.0-2.0) mmol/ L Mikey Test Hematocrit (42-52) % Manager Merchandise ID Sodium 139 (136-145) mmol/L Potassium 3.9 (3.5-5.1) mmol/L Chloride 103 (98-107) mmol/L Carbon Dioxide 27 (22-29) mmol/L Anion Gap 12.9 (5-19) BUN 34 H (8-23) mg/dL Creatinine 1.6 H (0.7-1.2) mg/dL GFR Calculation 44.2 L (90-130) mL/min Glucose 125 H (65-115) mg/dL Calculated Osmolal ity 297 H (285-295) mOsm/k g Lactic Acid 1.8 (0.5-2.2) mmol/L Calcium 9.4 (8.5-10.5) mg/dL Magnesium 2.3 (1.7-2.3) mg/dL Total Bilirubin 0.2 (0.15-1.2) mg/dL AST 52 H (0-40) U/L ALT 54 H (0-41) U/L Alkaline Phosphata se 131 H (40-130) IU/L Troponin T Baselin e (0-15) ng/L NT-Pro-B Natriuret Pep 3646 H (0-125) pg/mL Total Protein 6.6 (6.6-8.7) g/dL Albumin 3.8 (3.5-5.2) g/dL Globulin 2.8 (1.3-4.6) g/dL Hepatitis A IgM Ab (Nonreactive) Hep Bs Antigen (Nonreactive) Hep B Core IgM Ab (Nonreactive) Hepatitis C Antibo dy (Nonreactive) Influenza Type A A g (Negative) Influenza Type B A g (Negative) SARS-CoV-2 Ag (Rap id) (Negative) 04/29/20 04/29/20 04/29/20 Range/Units 00:15 00:15 00:15 WBC (4.0-10.0) 10^3/ uL RBC (4.1-5.3) 10^6/u L Hgb (11.7-16.6) g/dL Hct (42.0-52.0) % MCV (80-94) fL MCH (28.0-34.0) pg MCHC (30.0-36.0) g/dL RDW (12.1-15.1) % Plt Count (130-400) 10^3/c mm MPV (7.4-10.4) fL Neut % (Auto) % Lymph % (Auto) % [place] % (Auto) % Eos % (Auto) % Baso % (Auto) % Neut # (Auto) (1.8-7.7) 10^3/u L Lymph # (Auto) (0.8-4.8) 10^3/u L [place] # (Auto) (0.2-0.9) 10^3/u L Eos # (Auto) (0.0-0.8) 10^3/u L Baso # (Auto) (0.0-0.1) 10^3/u L Nucleated RBC % (a uto) % Nucleated RBCs # /100WBC PT 13.20 (12.1-14.9) SECO NDS INR 0.97 (0.8-1.2) Specimen Type Sample Site ABG pH (7.35-7.45) ABG pCO2 (35-45) mmHg ABG pO2 (80.0-100.0) mmH g ABG HCO3 (22-26) mmol/L ABG Base Excess (-2.0-2.0) mmol/ L Mikey Test Hematocrit (42-52) % Manager Merchandise ID Sodium (136-145) mmol/L Potassium (3.5-5.1) mmol/L Chloride (98-107) mmol/L Carbon Dioxide (22-29) mmol/L Anion Gap (5-19) BUN (8-23) mg/dL Creatinine (0.7-1.2) mg/dL GFR Calculation (90-130) mL/min Glucose (65-115) mg/dL Calculated Osmolal ity (285-295) mOsm/k g Lactic Acid (0.5-2.2) mmol/L Calcium (8.5-10.5) mg/dL Magnesium (1.7-2.3) mg/dL Total Bilirubin (0.15-1.2) mg/dL AST (0-40) U/L ALT (0-41) U/L Alkaline Phosphata se (40-130) IU/L Troponin T Baselin e 35 H (0-15) ng/L NT-Pro-B Natriuret Pep (0-125) pg/mL Total Protein (6.6-8.7) g/dL Albumin (3.5-5.2) g/dL Globulin (1.3-4.6) g/dL Hepatitis A IgM Ab Non-reactive (Nonreactive) Hep Bs Antigen Non-reactive (Nonreactive) Hep B Core IgM Ab Non-reactive (Nonreactive) Hepatitis C Antibo dy Non-reactive (Nonreactive) Influenza Type A A g (Negative) Influenza Type B A g (Negative) SARS-CoV-2 Ag (Rap id) (Negative) 04/29/20 04/29/20 04/29/20 Range/Units 00:16 00:16 01:00 WBC (4.0-10.0) 10^3/ uL RBC (4.1-5.3) 10^6/u L Hgb (11.7-16.6) g/dL Hct (42.0-52.0) % MCV (80-94) fL MCH (28.0-34.0) pg MCHC (30.0-36.0) g/dL RDW (12.1-15.1) % Plt Count (130-400) 10^3/c mm MPV (7.4-10.4) fL Neut % (Auto) % Lymph % (Auto) % [place] % (Auto) % Eos % (Auto) % Baso % (Auto) % Neut # (Auto) (1.8-7.7) 10^3/u L Lymph # (Auto) (0.8-4.8) 10^3/u L [place] # (Auto) (0.2-0.9) 10^3/u L Eos # (Auto) (0.0-0.8) 10^3/u L Baso # (Auto) (0.0-0.1) 10^3/u L Nucleated RBC % (a uto) % Nucleated RBCs # /100WBC PT (12.1-14.9) SECO NDS INR (0.8-1.2) Specimen Type Arterial Sample Site Radial, right ABG pH 7.43 (7.35-7.45) ABG pCO2 35.4 (35-45) mmHg ABG pO2 102.0 H (80.0-100.0) mmH g ABG HCO3 23.7 (22-26) mmol/L ABG Base Excess -0.3 (-2.0-2.0) mmol/ L Mikey Test Pos Hematocrit 34.0 L (42-52) % Manager Merchandise ID ellpe Sodium (136-145) mmol/L Potassium (3.5-5.1) mmol/L Chloride (98-107) mmol/L Carbon Dioxide (22-29) mmol/L Anion Gap (5-19) BUN (8-23) mg/dL Creatinine (0.7-1.2) mg/dL GFR Calculation (90-130) mL/min Glucose (65-115) mg/dL Calculated Osmolal ity (285-295) mOsm/k g Lactic Acid (0.5-2.2) mmol/L Calcium (8.5-10.5) mg/dL Magnesium (1.7-2.3) mg/dL Total Bilirubin (0.15-1.2) mg/dL AST (0-40) U/L ALT (0-41) U/L Alkaline Phosphata se (40-130) IU/L Troponin T Baselin e (0-15) ng/L NT-Pro-B Natriuret Pep (0-125) pg/mL Total Protein (6.6-8.7) g/dL Albumin (3.5-5.2) g/dL Globulin (1.3-4.6) g/dL Hepatitis A IgM Ab (Nonreactive) Hep Bs Antigen (Nonreactive) Hep B Core IgM Ab (Nonreactive) Hepatitis C Antibo dy (Nonreactive) Influenza Type A A g Negative (Negative) Influenza Type B A g Negative (Negative) SARS-CoV-2 Ag (Rap id) Negative (Negative) Imaging Data^: CXR: Attestation: I personally reviewed and interpreted this imaging study as follows: My impression: Cardiomegaly with pulmonary vascular congestion. CT Chest: Radiologist's impression: [facility] [address] [place] [address] CT Scan Report Signed Patient: Douglas Burgos #: [id number] : 9Acct#:[id number] Age/Sex: 59 / MADM Date: 04/29/20 Loc: ICURoom/Bed: [place] [address]: Feliberto Valencia MD Ordering Provider/Ordering MD: Laura Mckoy DO Date of Service: 04/29/20 Procedure(s): CT angio chest PE protcl [id number] Accession Number(s): [id number] Report Number: [id number] PROCEDURE INFORMATION: Exam: CT Angiography Chest With Contrast Exam date and time: 04/29/2020 2:35 AM Age: 59 years old Clinical indication: Shortness of breath; Additional info: Dyspnea TECHNIQUE: Imaging protocol: Computed tomographic angiography of the chest with intravenous contrast. 3D rendering (Not supervised by radiologist): MIP and/or 3D reconstructed images were created by the technologist. Radiation optimization: All CT scans at this facility use at least one of these dose optimization techniques: automated exposure control; mA and/or kV adjustment per patient size (includes targeted exams where dose is matched to clinical indication); or iterative reconstruction. Contrast material: VISI; Contrast volume: 83 ml; Contrast route: INTRAVENOUS (IV); COMPARISON: CT angio chest PE protcl [id number] 08/15/2019 5:25 PM RADIATION DOSE METRICS: Total DLP (mGy-cm): 670.57 FINDINGS: Pulmonary arteries: Many pulmonary emboli noted in the right pulmonary artery, major trunks to all lobes, and segmental arteries in all lobes. Many pulmonary emboli noted in the left pulmonary artery, major trunks to all lobes, and segmental arteries in all lobes. Aorta: No thoracic aortic aneurysm identified. Lungs: Mild patchy atelectasis in both lungs. Pleural space: No pneumothorax or pleural effusion. Heart: Heart size within normal limits. No right heart strain identified. Lymph nodes: No enlarged or abnormal appearing mediastinal/hilar lymph nodes identified. Bones/joints: Flowing ossification anterior to the thoracic spine, consistent with diffuse idiopathic skeletal hyperostosis. Soft tissues: Unremarkable. Other findings: Images of the upper abdomen were reviewed and are unremarkable. CT/CT angio chest PE protcl [id number] IMPRESSION: 1. Many pulmonary emboli bilaterally. The findings were discussed with Dr. Mckoy on 04/29/2020 3:39 AM COFFEE SUPERVISOR. Radiation Dose CTDIVOL = (mGy): DLP = 670.57 (mGy-cm) Dictated By:Emanuel Villanueva MD Signed By:Emanuel Villanueva MDSigned Date/Time:04/29/20339 DD/ 8 EKG Data^: EKG 1: Attestation: I personally reviewed and interpreted this EKG as follows: EKG Interpretation Date: 04/29/20 EKG interpretation time: 00:09 Interpretation: Patient fibrillation with ventricular rate of 73 beats a minute, right axis deviation, incomplete right bundle branch block, nonspecific ST and T wave changes. Discharge Plan Discharge Patient Disposition: Admitted As Inpatient Admit Provider: Feliberto Valencia Clinical Impression: Atrial fibrillation, new onset, New onset of congestive heart failure, Pulmonary emboli Condition: Stable Interventions: ED Discharge Assessment Last Done: 04/29/20 03:27 ED Charges Last Done: 04/29/20 03:27 Discharge Date/Time: 04/29/20 03:29 Coding Level of Care Code ED Laydown Machine Operator for Chg Fwd Exam Comprehensive
--- NOTE | 2020-04-29 00:10 | ECG_ITS ---
[facility] Test Date: 2020-04-29 Pat Name: Douglas Burgos Department: Room: ICU08 Gender: Male Indexer: : 1960 Requested By: Laura Hoskins Order Number: [id number] Atul MD: Karen Mckenzie M.D. Measurements Intervals [place] Rate: 73 P: MA: -1 QRS: 201 QRSD: 118 T: 122 QT: 406 QTc: 450 Interpretive Statements ATRIAL FIBRILLATION INCOMPLETE RIGHT BUNDLE BRANCH BLOCK POSSIBLE RIGHT VENTRICULAR HYPERTROPHY Compared to ECG 08/15/2019 17:02:00 Incomplete right bundle-branch block now present Atrial abnormality now present Sinus bradycardia no longer present Ventricular premature complex(es) no longer present Electronically Signed On 04-29-2020 22:34:40 CROP QUANTITATIVE GENETICIST by Karen Mckenzie M.D. [id number]
[2020-04-29] MEDS: nitroglycerin drip 50 MG/250 ML PREMIX IV (00:25)
[2020-04-29 00:28] LABS: Basophils % 0.3 %; Eosinophils # 0.2 10^3/uL (0.0-0.8); Eosinophils % 1.6 %; Hematocrit 38.9 % (42.0-52.0); Hemoglobin 12.4 g/dL (11.7-16.6); Lymphocytes # 3.9 10^3/uL (0.8-4.8); Mean Corpuscular HGB Conc 31.9 g/dL (30.0-36.0); Mean Corpuscular Hemoglobin 28.1 pg (28.0-34.0); Mean Corpuscular Volume 88.2 fL (80-94); Mean Platelet Volume 8.9 fL (7.4-10.4); Monocytes # 0.9 10^3/uL (0.2-0.9); Monocytes % 5.9 %; Neutrophils # 9.25 10^3/uL (1.8-7.7); Neutrophils % 63.8 %; Nucleated Red Blood Cells % 0 %; Platelet Count 269 10^3/cmm (130-400); Red Blood Count 4.41 10^6/uL (4.1-5.3); Red Cell Distribution Width 14.8 % (12.1-15.1); White Blood Count 14.5 10^3/uL (4.0-10.0)
[2020-04-29 00:51] LABS: INR 0.97 (0.8-1.2)
[2020-04-29 00:56] LABS: Lactic Sepsis W/Reflex 1.8 mmol/L (0.5-2.2)
[2020-04-29 00:59] LABS: Troponin(5th) Baseline 35 ng/L (0-15)
[2020-04-29 01:04] LABS: ABG PH Result 7.43 (7.35-7.45); Blood Gas Allen Test Pos; Blood Gas Sample Site Radial, right; Blood Gas Sample Type Arterial
[2020-04-29 01:07] LABS: ABG PCO2 35.4 mmHg (35-45); Base Excess ABG -0.3 mmol/L (-2.0-2.0); HCO3 ABG 23.7 mmol/L (22-26)
[2020-04-29 01:09] LABS: Alanine Aminotransferase 54 U/L (0-41); Albumin Level 3.8 g/dL (3.5-5.2); Alkaline Phosphatase 131 IU/L (40-130); Anion Gap 12.9 (5-19); Aspartate Amino Transferase 52 U/L (0-40); Blood Urea Nitrogen 34 mg/dL (8-23); Calcium 9.4 mg/dL (8.5-10.5); Carbon Dioxide 27 mmol/L (22-29); Chloride 103 mmol/L (98-107); Globulin 2.8 g/dL (1.3-4.6); Glomerular Filtration Rate 44.2 mL/min (90-130); Glucose 125 mg/dL (65-115); Magnesium 2.3 mg/dL (1.7-2.3); NT Pro B Type Natriuretic Pept 3646 pg/mL (0-125); Osmolality Calculated 297 mOsm/kg (285-295); Potassium 3.9 mmol/L (3.5-5.1); Sodium 139 mmol/L (136-145); Total Bilirubin 0.2 mg/dL (0.15-1.2); Total Protein 6.6 g/dL (6.6-8.7)
[2020-04-29 01:15] LABS: Influenza A by IFA Negative (Negative); Influenza B by IFA Negative (Negative); SARS Covid-2 Antigen Negative (Negative)
[2020-04-29] MEDS: FUROsemide 10 mg/mL SDV 4mL 40 MG IVP (01:33)
--- NOTE | 2020-04-29 02:10 | ECG_ITS ---
[facility] Test Date: 2020-04-29 Pat Name: Douglas Burgos Department: Room: ICU08 Gender: Male Seismic Observer: : 1960 Requested By: Laura Hoskins Order Number: [id number] Pollard MD: Karen Mckenzie M.D. Measurements Intervals [place] Rate: 61 P: ND: -1 QRS: -8 QRSD: 114 T: 75 QT: 417 QTc: 422 Interpretive Statements ATRIAL FIBRILLATION INCOMPLETE RIGHT BUNDLE BRANCH BLOCK MODERATE ST DEPRESSION [0.05+ mV ST DEPRESSION] Compared to ECG 08/15/2019 17:02:00 Incomplete right bundle-branch block now present ST (T wave) deviation now present Sinus bradycardia no longer present Ventricular premature complex(es) no longer present Electronically Signed On 04-29-2020 19:38:32 NAME PLATE STAMPING MACHINE OPERATOR by Karen Mckenzie M.D. [id number]
--- NOTE | 2020-04-29 02:28 | CTR_ITS ---
PROCEDURE INFORMATION: Exam: CT Angiography Chest With Contrast Exam date and time: 04/29/2020 2:35 AM Age: 59 years old Clinical indication: Shortness of breath; Additional info: Dyspnea TECHNIQUE: Imaging protocol: Computed tomographic angiography of the chest with intravenous contrast. 3D rendering (Not supervised by radiologist): MIP and/or 3D reconstructed images were created by the technologist. Radiation optimization: All CT scans at this facility use at least one of these dose optimization techniques: automated exposure control; mA and/or kV adjustment per patient size (includes targeted exams where dose is matched to clinical indication); or iterative reconstruction. Contrast material: VISI; Contrast volume: 83 ml; Contrast route: INTRAVENOUS (IV); COMPARISON: CT angio chest PE protcl [id number] 08/15/2019 5:25 PM RADIATION DOSE METRICS: Total DLP (mGy-cm): 670.57 FINDINGS: Pulmonary arteries: Many pulmonary emboli noted in the right pulmonary artery, major trunks to all lobes, and segmental arteries in all lobes. Many pulmonary emboli noted in the left pulmonary artery, major trunks to all lobes, and segmental arteries in all lobes. Aorta: No thoracic aortic aneurysm identified. Lungs: Mild patchy atelectasis in both lungs. Pleural space: No pneumothorax or pleural effusion. Heart: Heart size within normal limits. No right heart strain identified. Lymph nodes: No enlarged or abnormal appearing mediastinal/hilar lymph nodes identified. Bones/joints: Flowing ossification anterior to the thoracic spine, consistent with diffuse idiopathic skeletal hyperostosis. Soft tissues: Unremarkable. Other findings: Images of the upper abdomen were reviewed and are unremarkable. CT/CT angio chest PE protcl [id number] IMPRESSION: 1. Many pulmonary emboli bilaterally. The findings were discussed with Dr. Mckoy on 04/29/2020 3:39 AM JUVENILE JUSTICE OFFICER. Radiation Dose CTDIVOL = (mGy): DLP = 670.57 (mGy-cm)
--- NOTE | 2020-04-29 02:41 | P.HP_ITS ---
Providers/Chief Complaint Admitting Physician: Feliberto Valencia MD Primary Care Provider: Tye Bowers MD Chief Complaint: SOB 2neg covid tests History of Present Illness Douglas Burgos is a 59 year old male that presents to the emergency department feeling short of breath, and with a cough worse in the last several days. He reports an oxygen saturation in the 80s at home. He has had some orthopnea. Overall he reports he has been struggling with this since around May 15. At that time he had a significant cough, and fever up to 102 ?F. He has had 2 rapid Covid test, and one negative PCR test with that being on 20 April. He reports he went to his physician's office and ultimately got an antibiotic which he took twice a day which she is still on. He also reports that he was prescribed a steroid, and albuterol. None of this is helped. He reports chron ic swelling, perhaps slightly worse. No vomiting, chest pain, recurrent fever. Has had some loose stool. Denies any specific leg pain. Reports he was exposed to people with Covid April 11, and likely April 12 in a marriage and then a wake. He denies any hemoptysis. He reports no history of heart rhythm issues. He states he has some chronic kidney disease, from anti-inflammatory use in the past and reports he has been using anti-inflammatories again with this illness with ibuprofen perhaps twice a day. Review of Systems General: Reports: 10 or more systems reviewed and unremarkable except in HPI and below Const: Reports: fever(s), fatigue and malaise Eyes: Denies: change in vision ENMT: Denies: throat pain Card: Reports: edema, swelling of feet/ankles and orthopnea; Denies: chest pain Resp: Reports: dyspnea and non-productive cough GI: Denies: abdominal pain : Denies: flank pain Musc: Denies: neck pain Skin/Breast: Denies: rash Psych: Denies: anxiety Endo: Denies: polyuria Cabrera/Lymph: Denies: easy bruising All/Imm: Denies: urticaria Medications/Allergies Home Medications Medication Instructions Recorded Confirmed Last Taken Type amlodipine 5 mg tablet 5 mg PO DAILY 07/18/19 04/20/20 08/15/19 History bisoprolol 10 1 tab PO DAILY 07/18/19 04/20/20 08/15/19 History mg-hydrochlorothiazide 6.25 mg tablet cetirizine 10 mg tablet 10 mg PO DAILY 07/18/19 04/20/20 08/15/19 History isosorbide mononitrate 60 mg 120 mg PO DAILY 07/18/19 04/20/20 08/15/19 History tablet,extended release 24 hr losartan 100 mg tablet 100 mg PO DAILY 07/18/19 04/20/20 08/15/19 History metformin 500 mg tablet 500 mg PO BID 07/18/19 04/20/20 08/15/19 History montelukast 10 mg tablet 10 mg PO DAILY 07/18/19 04/20/20 08/15/19 History furosemide 40 mg tablet 40 mg PO DAILY #30 tab 08/28/19 04/20/20 Unknown Rx potassium chloride 20 mEq 20 meq PO DAILY #30 tab 08/28/19 04/20/20 Unknown Rx tablet,extended release Allergies Allergy/AdvReac Type Severity Reaction Status Date / Time No Known Allergies Allergy Unverified 04/20/20 14:12 PFSH Acute PFSH: Medical History (Updated 04/29/20 @ 03:10 by Feliberto Valencia MD) Chronic kidney disease Diabetes mellitus DVT (deep venous thrombosis) Hyperlipidemia Hypertension Obesity Porokeratosis Pulmonary embolism Suspected sleep apnea Surgical History (Updated 04/29/20 @ 02:48 by Feliberto Valencia MD) History of carpal tunnel surgery History of vasectomy Family History Other Hypertension Stroke Denies family history of Diabetes CAD (coronary artery disease) Clotting disorder Dementia Hyperlipidemia Psychiatric illness Chronic kidney disease (CKD) Suicide Anesthesia complication Bleeding disorder Family history of premature coronary artery disease Lung disease Cancer Social History Smoking and tobacco status: never smoked Alcohol intake: never Vitals/I&O/Wt Last Vital Signs Temp 98.8 F 04/28/20 23:51 Pulse 72 04/29/20 02:09 Resp 22 H 04/29/20 02:09 BP 216/120 04/29/20 02:09 Pulse Ox 97 04/29/20 02:09 04/28/20 04/28/20 04/29/20 14:59 22:59 06:59 Intake Total 6.975 / 6.975 Balance 6.975 / 6.975 Weight last 48 hrs Weight 149.685 kg Physical Exam Narrative: EXAM NARRATIVE: General exam is a white male, sitting up in bed, with a frequent cough HEENT: Pupils equally round. Oropharynx clear. Neck is supple, obese. No obvious lymphadenopathy or thyromegaly Cardiovascular irregular, irregular without murmur Lungs diminished breath sounds bilaterally. Few crackles. Abdomen is soft obese nontender with positive bowel sounds. No obvious organomegaly was deferred Extremities trace to 1+ edema bilaterally. Cap refill brisk. Skin without rash Neuro no obvious focal deficits Data : 04/29/20 00:15 04/29/20 00:15 Micro: Microbiology 04/29/20 00:20 Blood Culture - Preliminary Blood SPECIMEN COLLECTED 04/29/20 00:15 Blood Culture - Preliminary Blood SPECIMEN COLLECTED Other data: EKG demonstrates Chest x-ray demonstrates cardiomegaly. Some scattered calcified granulomas are noted likely representing old histoplasmosis ABG demonstrates a pH 7.43, PCO2 35, PO2 102. AST 52, ALT 54, alk phos 131, bili normal, initial troponin 35, BNP 3646. Urinalysis pending Rapid Covid and influenza negative EKG demonstrates atrial fibrillation, left axis deviation, incomplete right bundle A&P Assessment and plan (1) New onset of congestive heart failure: Consistent with acute diastolic congestive heart failure BNP elevated Has evidence of increased edema Echocardiogram this year demonstrates preserved EF Received Lasix 40 mg IV in the emergency department at 1:30 AM. Will reassess for further dosing later in the day Status: Acute (2) Acute hypoxemic respiratory failure: Oxygen as needed Etiology not determined. Likely congestive heart failure but with history of Covid exposure will have to repeat PCR Covid. He has recently also been treated with antibiotic presumably for pneumonia. He is taken over 7 days of medication so I doubt bacterial infection is present currently. Await procalcitonin. Other etiology could be pulmonary embolism so the emergency department is proceeding with CTA. Status: Acute (3) Atrial fibrillation, new onset: Currently rate controlled Coagulation currently Await results of CTA At this point no need to repeat echocardiogram. Previous echocardiogram was of poor quality and should not need to be redone, contrast will be needed. Check TSH Magnesium checked and normal Continue beta-john Status: Acute (4) Elevated troponin: Serial troponins and EKGs No ongoing chest discomfort Status: Acute (5) Hypertensive urgency: Placed on a nitroglycerin drip, titrate off if possible Initiate patient's medicines of losartan Change bisoprolol to metoprolol 100 mg twice daily Restart patient's Imdur Increase Norvasc to 10 mg daily Hydralazine as needed Status: Acute (6) Diabetes mellitus: Sliding scale insulin Status: Acute (7) Pulmonary embolism: Await CTA Status: Acute (8) Chronic kidney disease: Close follow-up of renal function Await urinalysis Anti-inflammatories Currently renal function appears stable so will continue ARB Status: Acute Additional A&P Information Transaminitis. Check acute hepatitis panel Obesity Full code Lovenox will suffice for DVT prophylaxis Attestations Medical Necessity Statement*: Will need greater than 2 midnight stay for evaluation and treatment of hypertensive urgency, respiratory failure, new onset atrial fibrillation, CHF exacerbation Time Spent in Patient Care: Greater than 35 minutes 53 minutes in ICU care at bedside spent secondary to multiple patient comorbidities with high risk for decompensation secondary to renal, cardiac, hepatic disease among others. 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
[2020-04-29] MEDS: enoxaparin 100 mg/mL Syringe 150 MG SUBCUT ×2 (02:42→14:14)
[2020-04-29 02:54] LABS: Glucose Urine UA Norm (Normal); Ketones Urine Negative (Negative); Protein Urine 2+ (Negative); Specific Gravity, Urine 1.015 (1.005-1.030); Urine Appearance Clear (CLEAR); Urine Color Yellow (Yellow)
[2020-04-29 02:55] LABS: Add Urine Microscopic? YES; Bilirubin Urine Neg (Negative); Leukocyte Esterase Urine Negative (Negative); Nitrate Urine Negative (Negative); Urobilinogen Urine Norm (Negative)
[2020-04-29 02:56] LABS: Blood Urine 1+ (Negative); RBC Urine 0-4 /hpf (0-2)
[2020-04-29 02:57] LABS: Add Urine Culture? No; Bacteria Urine TRACE /hpf
[2020-04-29 03:01] LABS: Troponin 5 2HR 36.04 ng/L (0-15); Troponin 5 2HR Delta 1.04 ABS# (0-10)
[2020-04-29] MEDS: iodixanol 320 mg/mL 100mL Btl IV (03:07)
[2020-04-29 03:22] LABS: Hepatitis A Antibody IgM Non-Reactive (Nonreactive); Hepatitis B Core IgM Non-Reactive (Nonreactive); Hepatitis B Surface Antigen Non-Reactive (Nonreactive); Hepatitis C Virus Antibody Non-Reactive (Nonreactive)
[2020-04-29 03:29] LABS: Procalcitonin 0.18 ng/mL (0-0.5); Thyroid Stimulating Hormone 2.29 uIU/mL (0.27-4.20)
--- NOTE | 2020-04-29 03:54 | USCV_ITS ---
Douglas Burgos Age: 59 Gender: M : 1960 Exam Date: 04/29/2020 05:37 Ordering Phys: Feliberto Valencia MD Technologist: Gina Barclay Exam Location: [facility] – [place] Indication: PE HISTORY: Pulmonary embolism. PROCEDURES: Venous duplex imaging was performed in bilateral lower extremities. The following venous structures were evaluated: common femoral vein, profunda vein, proximal portion of the greater saphenous vein, superficial femoral vein, and the popliteal vein. In addition, the posterior tibial and peroneal trunk were evaluated. Serial compression, augmentation maneuvers, and spectral Doppler flow evaluation were performed. FINDINGS: Normal 2-D Doppler and augmentation and compressibility throughout the lower extremity venous structures. Additional imaging through the proximal calf veins also reveals no thrombus. Limited evaluation of the greater saphenous vein is patent with no thrombus.. CONCLUSIONS No evidence of right lower extremity DVT. No evidence of left lower extremity DVT. Mark Resendiz MD (Electronically Signed) Final Date: 29 April 2020 09:20 S
--- NOTE | 2020-04-29 06:10 | ECG_ITS ---
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 Measurements Intervals [place] Rate: 73 P: RI: -1 QRS: 0 QRSD: 115 T: 66 QT: 421 QTc: 466 Interpretive Statements ATRIAL FIBRILLATION MODERATE INTRAVENTRICULAR CONDUCTION DELAY [110+ ms QRS DURATION] NONSPECIFIC ST & T-WAVE ABNORMALITY Compared to ECG 04/29/2020 02:47:54 Intraventricular conduction delay now present T-wave abnormality now present Incomplete right bundle-branch block no longer present ST (T wave) deviation no longer present Electronically Signed On 04-29-2020 19:36:22 SOFTWARE QUALITY ANALYST by Karen Mckenzie M.D. [email or web address] [email or web address].[id number]
[2020-04-29 06:30] LABS: Basophils # 0.1 10^3/uL (0.0-0.1); Basophils % 0.3 %; Eosinophils # 0.3 10^3/uL (0.0-0.8); Eosinophils % 2.2 %; Hematocrit 39.3 % (42.0-52.0); Hemoglobin 12.2 g/dL (11.7-16.6); Lymphocytes # 4.8 10^3/uL (0.8-4.8); Lymphocytes % 30.8 %; Mean Corpuscular Hemoglobin 27.5 pg (28.0-34.0); Mean Corpuscular Volume 88.5 fL (80-94); Mean Platelet Volume 9.2 fL (7.4-10.4); Monocytes # 0.9 10^3/uL (0.2-0.9); Monocytes % 5.6 %; Neutrophils # 9.33 10^3/uL (1.8-7.7); Neutrophils % 59.5 %; Nucleated Red Blood Cells % 0 %; Platelet Count 270 10^3/cmm (130-400); Red Blood Count 4.44 10^6/uL (4.1-5.3); Red Cell Distribution Width 14.9 % (12.1-15.1); White Blood Count 15.7 10^3/uL (4.0-10.0)
[2020-04-29 06:48] LABS: Alanine Aminotransferase 55 U/L (0-41); Albumin Level 3.6 g/dL (3.5-5.2); Alkaline Phosphatase 108 IU/L (40-130); Anion Gap 13.8 (5-19); Aspartate Amino Transferase 49 U/L (0-40); Blood Urea Nitrogen 32 mg/dL (8-23); Calcium 9.3 mg/dL (8.5-10.5); Carbon Dioxide 28 mmol/L (22-29); Chloride 102 mmol/L (98-107); Globulin 3.6 g/dL (1.3-4.6); Glomerular Filtration Rate 56.1 mL/min (90-130); Glucose 140 mg/dL (65-115); Osmolality Calculated 299 mOsm/kg (285-295); Potassium 3.8 mmol/L (3.5-5.1); Sodium 140 mmol/L (136-145); Total Bilirubin 0.3 mg/dL (0.15-1.2); Total Protein 7.2 g/dL (6.6-8.7)
[2020-04-29 07:49] LABS: Troponin 5 6HR 35.28 ng/L (0-15); Troponin 5 6HR Delta 0.28 ng/L (0-12)
[2020-04-29 08:37] LABS: Glucose Point of Care 141 mg/dL (70-110)
[2020-04-29] MEDS: losartan 50 mg Tablet 100 MG PO (09:38)
[2020-04-29] MEDS: metoprolol tartrate 50 mg Tablet 100 MG PO ×2 (09:38→17:25)
[2020-04-29] MEDS: amlodipine 10 mg Tablet PO (09:38)
[2020-04-29] MEDS: isosorbide mononitrate ER 60 mg Tablet 120 MG PO (09:39)
[2020-04-29] MEDS: FUROsemide 40 mg Tablet PO (09:39)
[2020-04-29] MEDS: albuterol 8 gm MDI 2 PUFF INHALATION (09:45)
[2020-04-29 11:40] LABS: Glucose Point of Care 110 mg/dL (70-110)
--- NOTE | 2020-04-29 12:06 | PM.PN ---
Subjective Subjective: Interval history: Douglas reports he may feel a little bit better. Still short of breath and coughing quite a bit. No chest discomfort. Medications: Reviewed: Yes Vitals/I&O/Wt Last Vital Signs Temp 97.9 F 04/29/20 03:55 Pulse 65 04/29/20 10:30 Resp 22 H 04/29/20 10:30 BP 174/85 04/29/20 10:30 Pulse Ox 94 04/29/20 10:30 04/28/20 04/29/20 04/29/20 22:59 06:59 14:59 Intake Total 33.775 / 33.775 503.08 / 503.08 Output Total 850 / 850 900 / 900 Balance -816.225 / -816.225 -396.92 / -396.92 Weight last 48 hrs Weight 157.567 kg Weight 149.685 kg Physical Exam Narrative: EXAM NARRATIVE: General exam is a white male in mild to moderate distress, with a frequent cough Cardiovascular irregular, irregular without murmur Lungs diminished breath sounds bilaterally. Few crackles. Abdomen is soft obese nontender with positive bowel sounds. No obvious organomegaly Extremities trace to 1+ edema bilaterally. Cap refill brisk. Urinary Catheter Management^: Huitron: Cath Placed During This Visit: yes Urinary Catheter Date of Insertion: 04/29/20 Urinary Catheter Time of Insertion: 04:51 Data : 04/29/20 05:50 04/29/20 05:50 Micro: Microbiology 04/29/20 00:20 Blood Culture - Preliminary Blood SPECIMEN COLLECTED 04/29/20 00:15 Blood Culture - Preliminary Blood SPECIMEN COLLECTED A&P Assessment and plan (1) New onset of congestive heart failure: Consistent with acute diastolic congestive heart failure BNP elevated Has evidence of increased edema Echocardiogram this year demonstrates preserved EF Received Lasix 40 mg IV in the emergency department at 1:30 AM. At this point fluid overload is not the significant factor. The most significant factor now is his multiple pulmonary emboli seen on CTA Status: Acute (2) Acute hypoxemic respiratory failure: Oxygen as needed Secondary to multiple pulmonary emboli. Full dose anticoagulation with Lovenox was initiated Covid PCR was ordered, and pending. Rapid negative. Status: Acute (3) Atrial fibrillation, new onset: Currently rate controlled Continue full dose anticoagulation At this point no need to repeat echocardiogram. Previous echocardiogram was of poor quality and should not need to be redone, contrast will be needed. CTA did not demonstrate evidence of RV overload. TSH and magnesium were checked and normal Continue beta-john Status: Acute (4) Elevated troponin: No evidence of acute myocardial infarction. Elevation secondary to pulmonary emboli Status: Acute (5) Hypertensive urgency: Placed on a nitroglycerin drip on admission. Continue to try to titrate this off. Continue patient home medication. Increase Norvasc to 10 mg. Add hydralazine as needed. Change bisoprolol to metoprolol 100 mg twice daily Continue Imdur Status: Acute (6) Diabetes mellitus: Sliding scale insulin Status: Acute (7) Pulmonary embolism: CTA consistent with acute bilateral pulmonary emboli, likely without heart strain Full dose anticoagulation Venous duplex did not demonstrate DVT Status: Acute (8) Chronic kidney disease: Continued close follow-up of renal function Urinalysis negative Avoid anti-inflammatories Renal function today is slightly improved Status: Acute Additional A&P Information Transaminitis. Hepatitis panel negative Obesity Full code Lovenox will suffice for DVT prophylaxis Attestations Medical Necessity Statement*: Needs continued hospitalization, for close monitoring and treatment of bilateral pulmonary emboli Critical Care Time: 32 minutes spent in critical care time reviewing patient care at bedside including laboratory, exam, and formulating a plan in this patient with multiple pulmonary emboli, CHF, kidney disease, transaminitis with high risk of and/or disability. Coding Level of Care Code Acute Needle Process Felt Goods Supervisor for Chg Fwd Diagnoses New onset of congestive heart failure I50.9 Acute hypoxemic respiratory failure J96.01 Atrial fibrillation, new onset I48.91 Elevated troponin R77.8 Hypertensive urgency I16.0 Diabetes mellitus E11.9 Pulmonary embolism I26.99 Chronic kidney disease N18.9
[2020-04-29] MEDS: hyDRALAzine 25 mg Tablet PO (16:51)
[2020-04-29 17:15] LABS: Glucose Point of Care 120 mg/dL (70-110)
--- NOTE | 2020-04-29 17:34 | PC.RESP ---
Pulmonary Rehab information sent to patient.
--- NOTE | 2020-04-29 18:44 | PC.NURSE ---
This nurse discussed pt condition with Dr. Valencia. Updated on pt blood pressure. N.O. for hydralazine Q8 hours and continue to titrate nitro gtt. Parameters for systolic blood pressure between 130-140 systolic.
--- NOTE | 2020-04-29 21:28 | PC.NURSE ---
Decreased Nitro to 5mcg per Dr Quiroz as SBP is below 160
[2020-04-29] MEDS: benzonatate 100 mg Capsule PO (21:29)
[2020-04-29 22:22] LABS: Glucose Point of Care 133 mg/dL (70-110)
[2020-04-30] VITALS (29 sets, daily range): BP systolic 115–176; BP diastolic 55–144; PULSE 57–79; RESP 12–31; TEMP 36.3–37; O2SAT 90–97
[2020-04-30] MEDS: enoxaparin 100 mg/mL Syringe 150 MG SUBCUT (02:42)
[2020-04-30] MEDS: hyDRALAzine 25 mg Tablet PO (02:43)
[2020-04-30 03:42] LABS: Basophils # 0.1 10^3/uL (0.0-0.1); Basophils % 0.4 %; Eosinophils # 0.4 10^3/uL (0.0-0.8); Eosinophils % 2.7 %; Hematocrit 42.3 % (42.0-52.0); Hemoglobin 13.1 g/dL (11.7-16.6); Lymphocytes # 4.4 10^3/uL (0.8-4.8); Lymphocytes % 32.5 %; Mean Corpuscular Hemoglobin 27.3 pg (28.0-34.0); Mean Corpuscular Volume 88.1 fL (80-94); Mean Platelet Volume 9.1 fL (7.4-10.4); Monocytes # 0.8 10^3/uL (0.2-0.9); Monocytes % 5.7 %; Neutrophils # 7.79 10^3/uL (1.8-7.7); Neutrophils % 57.4 %; Nucleated Red Blood Cells % 0 %; Platelet Count 295 10^3/cmm (130-400); Red Cell Distribution Width 15.3 % (12.1-15.1); White Blood Count 13.5 10^3/uL (4.0-10.0)
[2020-04-30 04:07] LABS: Alanine Aminotransferase 43 U/L (0-41); Albumin Level 3.8 g/dL (3.5-5.2); Alkaline Phosphatase 117 IU/L (40-130); Anion Gap 14.6 (5-19); Aspartate Amino Transferase 35 U/L (0-40); Blood Urea Nitrogen 28 mg/dL (8-23); Calcium 9.7 mg/dL (8.5-10.5); Carbon Dioxide 27 mmol/L (22-29); Chloride 101 mmol/L (98-107); Globulin 3.4 g/dL (1.3-4.6); Glomerular Filtration Rate 56.1 mL/min (90-130); Glucose 152 mg/dL (65-115); Osmolality Calculated 296 mOsm/kg (285-295); Potassium 3.6 mmol/L (3.5-5.1); Sodium 139 mmol/L (136-145); Total Bilirubin 0.5 mg/dL (0.15-1.2); Total Protein 7.2 g/dL (6.6-8.7)
[2020-04-30] MEDS: benzonatate 100 mg Capsule PO (05:58)
[2020-04-30 07:31] LABS: Glucose Point of Care 150 mg/dL (70-110)
[2020-04-30] MEDS: isosorbide mononitrate ER 60 mg Tablet 120 MG PO (08:01)
[2020-04-30] MEDS: potassium chloride ER 10 mEq Tablet 40 MEQ PO (08:01)
[2020-04-30] MEDS: metoprolol tartrate 50 mg Tablet 100 MG PO ×2 (08:01→17:48)
[2020-04-30] MEDS: FUROsemide 40 mg Tablet PO (08:01)
[2020-04-30] MEDS: hyDRALAzine 50 mg Tablet PO ×3 (08:01→21:16)
[2020-04-30] MEDS: spironolactone 25 mg Tablet PO (08:02)
[2020-04-30] MEDS: losartan 50 mg Tablet 100 MG PO (08:02)
[2020-04-30] MEDS: amlodipine 10 mg Tablet PO (08:02)
[2020-04-30 11:08] LABS: Glucose Point of Care 132 mg/dL (70-110)
--- NOTE | 2020-04-30 11:25 | P.PN_ITS ---
Subjective Subjective: Interval history: Douglas reports he feels better today. He thinks his coughing may be a little bit better. No chest pain. Medications: Reviewed: Yes Vitals/I&O/Wt Last Vital Signs Temp 98.2 F 04/30/20 08:00 Pulse 71 04/30/20 08:34 Resp 16 04/30/20 08:34 BP 176/104 04/30/20 08:00 Pulse Ox 97 04/30/20 08:34 04/29/20 04/30/20 04/30/20 22:59 06:59 14:59 Intake Total 821 / 1863.705 6.558 / 1870.263 250 / 250 Output Total 1800 / 2700 300 / 3000 100 / 100 Balance -979 / -836.295 -293.442 / -1129.737 150 / 150 Weight last 48 hrs Weight 145.206 kg Weight 157.567 kg Weight 149.685 kg Physical Exam Narrative: EXAM NARRATIVE: General exam is a white male in no distress Cardiovascular irregular, irregular without murmur Lungs diminished breath sounds bilaterally. Few crackles. Abdomen is soft obese nontender with positive bowel sounds. No obvious organomegaly Extremities trace to 1+ edema bilaterally. Cap refill brisk. Urinary Catheter Management^: Huitron: Cath Placed During This Visit: yes Urinary Catheter Date of Insertion: 04/29/20 Urinary Catheter Time of Insertion: 04:51 Data : 04/30/20 03:25 04/30/20 03:25 Micro: Microbiology 04/29/20 00:20 Blood Culture - Preliminary Blood NEGATIVE TO DATE 04/29/20 00:15 Blood Culture - Preliminary Blood NEGATIVE TO DATE A&P Assessment and plan (1) New onset of congestive heart failure: Consistent with acute diastolic congestive heart failure BNP elevated Has evidence of increased edema Echocardiogram this year demonstrates preserved EF Received Lasix 40 mg IV in the emergency department at 1:30 AM. Oral Lasix He is diuresed some more overnight Status: Acute (2) Acute hypoxemic respiratory failure: Oxygen as needed Secondary to multiple pulmonary emboli. Full dose anticoagulation with Lovenox was initiated. Will transition to Eliquis today as clinically improving Covid PCR was ordered, and pending. Rapid negative. Status: Acute (3) Atrial fibrillation, new onset: Currently rate controlled Continue full dose anticoagulation At this point no need to repeat echocardiogram. Previous echocardiogram was of poor quality and should not need to be redone, contrast will be needed. CTA did not demonstrate evidence of RV overload. TSH and magnesium were checked and normal Continue beta-john times but no reason to change dosing of medication. Status: Acute (4) Elevated troponin: No evidence of acute myocardial infarction. Elevation secondary to pulmonary emboli Status: Acute (5) Hypertensive urgency: Placed on a nitroglycerin drip on admission. Titrated off today. I increased his hydralazine to 50 mg 3 times daily Added Aldactone 25 mg daily Continue Norvasc, losartan, metoprolol, Imdur Will need follow-up with his welfare manager upon discharge regarding his resistant hypertension Status: Acute (6) Diabetes mellitus: Sliding scale insulin Status: Acute (7) Pulmonary embolism: CTA consistent with acute bilateral pulmonary emboli, likely without heart strain Full dose anticoagulation Venous duplex did not demonstrate DVT Status: Acute (8) Chronic kidney disease: Continued close follow-up of renal function Urinalysis negative Avoid anti-inflammatories Renal function is stable Status: Acute Additional A&P Information Transaminitis. Hepatitis panel negative this has improved Obesity Full code Eliquis will suffice for DVT prophylaxis Transition out of ICU today but will need telemetry on the floor. Attestations Medical Necessity Statement*: Needs continued hospitalization for close monitoring secondary to pulmonary emboli, with fair burden and oxygen requirement. 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
[2020-04-30] MEDS: apixaban 5 mg Tablet 10 MG PO (15:31)
[2020-04-30 16:51] LABS: Glucose Point of Care 123 mg/dL (70-110)
[2020-04-30 19:28] LABS: Quest SARS-CoV-2 RNA NOT DETECTED (NOT DETECTED)
[2020-04-30 20:27] LABS: Glucose Point of Care 135 mg/dL (70-110)
[2020-05-01] VITALS (7 sets, daily range): BP systolic 123–184; BP diastolic 64–103; PULSE 72–80; RESP 16–18; TEMP 36.3–37; O2SAT 92–97; BMI 47.2
[2020-05-01] MEDS: amlodipine 5 mg Tablet 10 MG PO (02:21)
[2020-05-01] MEDS: labetalol 5 mg/mL SDV 20mL 10 MG IVP (05:14)
[2020-05-01] MEDS: apixaban 5 mg Tablet 10 MG PO (05:15)
[2020-05-01 07:44] LABS: Glucose Point of Care 151 mg/dL (70-110)
[2020-05-01] MEDS: losartan 50 mg Tablet 100 MG PO (08:07)
[2020-05-01] MEDS: hyDRALAzine 50 mg Tablet PO (08:07)
[2020-05-01] MEDS: isosorbide mononitrate ER 60 mg Tablet 120 MG PO (08:07)
[2020-05-01] MEDS: metoprolol tartrate 50 mg Tablet 100 MG PO (08:07)
[2020-05-01] MEDS: spironolactone 25 mg Tablet PO (08:09)
[2020-05-01] MEDS: amlodipine 10 mg Tablet PO (08:09)
[2020-05-01] MEDS: FUROsemide 40 mg Tablet PO (08:09)
[2020-05-01 11:05] LABS: Glucose Point of Care 159 mg/dL (70-110)
[2020-05-01] MEDS: FUROsemide 10 mg/mL SDV 2mL 20 MG IVP (11:56)
--- NOTE | 2020-05-01 12:25 | P.DS_ITS ---
Discharge Providers Date of Admission: 04/29/20 03:54 Date of Discharge: May 01, 2020 Attending Provider at Admission: Feliberto Valencia MD Attending Provider at Discharge: Feliberto Valencia MD Primary Care Provider: Tye Bowers MD Diagnoses at Discharge Discharge Diagnosis (1) New onset of congestive heart failure: Status: Acute Permanent problem details: History of echocardiogram, limited with preserved EF 20 and stress test 12/13 with no reversible ischemia (2) Acute hypoxemic respiratory failure: Status: Acute Permanent problem details: Secondary to pulmonary emboli (3) Atrial fibrillation, new onset: Status: Acute Permanent problem details: Rate controlled (4) Elevated troponin: Status: Acute Permanent problem details: No evidence of acute myocardial infarction (5) Hypertensive urgency: Status: Acute Permanent problem details: Now under improved control on multiple medications (6) Diabetes mellitus: Status: Acute (7) Pulmonary embolism: Status: Acute Permanent problem details: Eliquis upon discharge (8) Chronic kidney disease: Status: Acute Permanent problem details: Renal function improved while in the hospital Reason for Visit Reason for Visit: SOB 2neg covid tests Hospital Course Hospital Course: Douglas is a 59-year-old white male with chronic edema to his lower extremities that presented with worsening shortness of breath over the last 3 weeks. He was visibly dyspneic and requiring oxygen on admission. He had been previously treated for pneumonia. Secondary to his past history of pulmonary embolism a CTA was performed demonstrating many bilateral PEs. He was fully anticoagulated on admission. Secondary to apparent fluid overload he was diuresed some as well. Blood pressure was markedly elevated and multiple medication changes were made over his hospital stay. He also received a venous duplex which demonstrated no DVT. With treatment as outlined above he improved substantially while in the hospital. He was able to wean to room air. He was able to ambulate around the room. Creatinine initially somewhat elevated decreased to 1.3 upon discharge. He was transitioned to [facility] during his hospital stay from [facility]. There was no evidence of right heart failure on CTA. Echocardiogram had rather recently been done and this was not repeated. Previous echocardiogram results demonstrated preserved EF and no major valvular abnormalities. He was discharged May 01 to follow-up with his primary care provider, have a BMP on follow-up, and see cardiology as an outpatient in 2 weeks for follow-up of his resistant hypertension. Physical Exam Narrative: EXAM NARRATIVE: General exam is no apparent distress Cardiovascular irregular, irregular Lungs clear Abdomen is soft with positive bowel sounds Extremities 1+ edema Urinary Catheter Management^: Huitron: Cath Placed During This Visit: yes, but has since been removed by the nurse Reason for Continuing Indwelling Catheter: Accurate Measurement of Urinary Output in Critically Ill Patients Urinary Catheter Date of Insertion: 04/29/20 Urinary Catheter Time of Insertion: 04:51 Date Urinary Catheter Removed: 04/30/20 Time Urinary Catheter Discontinued: 16:14 Discharge Data Data Completed and Pending: Completed Studies During Hospitalization Category Date Time Status CT angio chest PE protcl [id number] Stat Cat Scan 04/29/20 02:28 Completed XR chest 1V addi ble [id number] Stat Exams 04/29/20 00:09 [place] [id number] Routin e Ultrasound 04/29/20 03:54 Completed Pending at discharge Category Date Time Status Arterial Blood Ga s W/O Coox Stat Lab 04/29/20 01:00 Results Blood Culture Sta t Lab 04/29/20 00:20 Results Labs from last 24 hours 05/01/20 05/01/20 04/30/20 11:02 07:17 20:24 POC Glucose 159 151 135 SARS-CoV-2 RNA (RT -PCR) 04/30/20 04/29/20 16:46 02:50 POC Glucose 123 SARS-CoV-2 RNA (RT -PCR) Not detected Vitals: Last Vital Signs Temp 98.0 F 05/01/20 11:50 Pulse 72 05/01/20 11:50 Resp 18 05/01/20 11:50 BP 123/64 05/01/20 11:50 Pulse Ox 96 05/01/20 11:50 Discharge Plan Discharge Patient Disposition: Home Condition: Stable Prescriptions: New amlodipine 10 mg Tablet 10 mg PO DAILY Qty: 30 RF: 0 spironolactone 25 mg Tablet 25 mg PO DAILY Qty: 30 RF: 0 Eliquis DVT-PE Treat 30D Start 5 mg (74 tabs) tablets,dose pack See Rx Instructions .ROUTE .COMPLEX Qty: 74 RF: 0 metoprolol tartrate 50 mg Tablet 100 mg PO BID Qty: 120 RF: 0 benzonatate 100 mg Capsule 100 mg PO TID PRN (Reason: Cough) Qty: 20 RF: 0 hydralazine 50 mg Tablet 50 mg PO TID Qty: 90 RF: 0 Continued cetirizine [Allergy Relief (cetirizine)] 10 mg tablet 10 mg PO DAILY RF: 0 isosorbide mononitrate 60 mg tablet extended release 24 hr 120 mg PO DAILY RF: 0 losartan 100 mg tablet 100 mg PO DAILY RF: 0 metformin 500 mg tablet 500 mg PO BID RF: 0 montelukast [Singulair] 10 mg tablet 10 mg PO DAILY RF: 0 ipratropium-albuterol 0.5 mg-3 mg(2.5 mg base)/3 mL Solution For Nebulization 3 ml INHALATION QID PRN (Reason: Shortness Of Breath) RF: 0 Lasix 40 mg tablet 80 mg PO DAILY RF: 0 Discontinued potassium chloride 20 mEq tablet extended release 20 meq PO DAILY Qty: 30 RF: 6 bisoprolol-hydrochlorothiazide 10-6.25 mg tablet 1 tab PO DAILY RF: 0 doxycycline hyclate 100 mg Capsule 100 mg PO BID RF: 0 Discharge Orders: Discharge Order (Routine); Ordered 05/01/20 Ordered By: Feliberto Valencia Referrals: Tye Bowers MD [Primary Care Provider] - 4-7 days Karen Mckenzie MD [Physician] - 2 weeks Discharge Diet: Cardiac and Diabetic Discharge Activity: Increase activity as tolerated Activity Restrictions/Additional Instructions: Take all medicine as prescribed Discharge Attestations Time Spent in Discharge Care*: greater than 30 min Quality Metrics Clinical Quality Measures During this hospital stay, did patient experience: VTE Contraindication to Overlap Therapy: Overlap treatment not indicated VTE Discharge Education: Education about anticoagulant therapy/Care Notes given Coding Level of Care Code Acute Application Support Consultant for magan Fwd Diagnoses New onset of congestive heart failure I50.9 Acute hypoxemic respiratory failure J96.01 Atrial fibrillation, new onset I48.91 Elevated troponin R77.8 Hypertensive urgency I16.0 Diabetes mellitus E11.9 Pulmonary embolism I26.99 Chronic kidney disease N18.9
== END 2020-05-01 14:20 | disposition home or self-care (01) | DRG 291 ==
LOC: ER 04-29 02:11 → ICU 04-29 02:26 → MEDSURG 04-30 15:36
PROVIDERS: Emergency Medicine; Admitting Provider Internal Medicine; PCP Family Medicine; Visit Provider Internal Medicine
DX: I13.0 Hypertensive heart and chronic kidney disease with heart failure and stage 1 through stage 4 chronic kidney disease, or unspecified chronic kidney disease (principal); I50.31 Acute diastolic (congestive) heart failure; I26.99 Other pulmonary embolism without acute cor pulmonale; J96.01 Acute respiratory failure with hypoxia; Z68.42 Body mass index [BMI] 45.0-49.9, adult; N18.9 Chronic kidney disease, unspecified; E11.22 Type 2 diabetes mellitus with diabetic chronic kidney disease; Z86.718 Personal history of other venous thrombosis and embolism; E78.5 Hyperlipidemia, unspecified; E66.9 Obesity, unspecified; Q82.8 Other specified congenital malformations of skin; G47.30 Sleep apnea, unspecified; I48.91 Unspecified atrial fibrillation; I16.0 Hypertensive urgency; Z79.84 Long term (current) use of oral hypoglycemic drugs
CPT/HCPCS: 12345; 36415; 36416; 36600; 51702; 71045; 71275; 80053; 80074; 81001; 82803; 82962; 83605; 83735; 83880; 84145; 84443; 84484; 85025; 85610; 87040; 87426; 87635; 87804; 93005; 93970; 94640; 96372; 96375; 99284; G0378; J1650; J1815; J1940; J3490; J3535; Q9967

== ENCOUNTER → 2020-05-26 16:49 | Outpatient (BNVA) | payer OTHER, SELFPAY | PROVIDERS: PCP Family Medicine; Visit Provider Nurse Practitioner Family | DX: I26.99 Other pulmonary embolism without acute cor pulmonale (principal); I48.91 Unspecified atrial fibrillation; I50.9 Heart failure, unspecified | CPT/HCPCS: 80048 ==

== ENCOUNTER → 2020-06-17 11:20 | Outpatient (BNVA) | payer OTHER, SELFPAY | PROVIDERS: PCP Family Medicine; Visit Provider Internal Medicine Cardiovascular Disease | DX: I50.9 Heart failure, unspecified (principal); I48.91 Unspecified atrial fibrillation | CPT/HCPCS: 80053; 83735; 83880 ==